=== PATIENT | male | born 1945 | race Caucasian/White ===

== ENCOUNTER 2020-05-11 13:01 | Inpatient (IN) ==
[2020-05-11] MEDS ORDERED: 0.9 % Sodium Chloride 1,000 ML IVC ONE ×2 (13:12→14:58)
[2020-05-11 13:58] LABS: VBG HCO3 26 mEq/L (21-27); VBG PCO2 58 mmHg (41-51); VBG PH 7.25 pH Units (7.32-7.42); VBG PO2 30 mmHg (25-50)
[2020-05-11 14:00] LABS: Basophils % 0.1 %; Hematocrit 54.8 % (37.5-50.1); Hemoglobin 18.1 g/dL (12.9-16.9); Immature Granulocytes % 0.5 % (0-4); Lymphocytes # 0.7 K/mcL (0.6-4.6); Lymphocytes % 4.7 %; Mean Corpuscular Hemoglobin 31.7 pg (28.0-33.3); Mean Platelet Volume 12.5 fL (9.4-12.4); Monocytes # 1.4 K/mcL (0.0-1.3); Monocytes % 9.5 %; Neutrophils # 12.4 K/mcL (1.6-8.9); Platelet Count 146 K/mcL (140-400); Red Blood Count 5.71 M/mcL (4.19-5.50); Red Cell Distribution Width 13.8 % (11.5-14.5); Segmented Neutrophils % 85.2 %; White Blood Count 14.6 K/mcL (4.3-11.1)
[2020-05-11 14:11] LABS: INR 1.3; Prothrombin Time 14.5 Seconds (9.4-12.1)
[2020-05-11 14:20] LABS: Bilirubin,Urine Negative (Negative); Blood,Urine Moderate (Negative); Clarity,Urine Clear (Clear); Color,Urine Light-Orange (Yellow); Glucose,Urine (UA) 500 mg/dL (Normal); Hyaline Casts,Urine Many per lpf (None Seen); Ketones,Urine Trace mg/dL (Negative); Leukocyte Esterase,Urine Trace (Negative); Mucus,Urine Few per lpf (None-Few); Nitrite,Urine Negative (Negative); Protein,Urine >=300 mg/dL (Neg-Trace); RBC,Urine 0-3 per hpf (0-3); Specific Gravity,Urine > 1.030 (1.010-1.025); Squamous Epithelial Cell,Urine Few per hpf (None-Few)
[2020-05-11 14:29] LABS: Amphetamine Screen,Urine Negative ng/mL (Cutoff=1000); Barbiturate Screen,Urine Negative ng/mL (Cutoff=200); Benzodiazepines Screen,Urine Negative ng/mL (Cutoff=200); Cannabinoid Screen,Urine Negative ng/mL (Cutoff = 50); Cocaine Screen,Urine Negative ng/mL (Cutoff= 300); Opiate Screen,Urine Negative ng/mL (Cutoff=300); Phencyclidine Screen,Urine Negative ng/mL (Cutoff=25)
[2020-05-11] MEDS ORDERED: cefTRIAXone 1,000 MG in Water for inj. (sterile) 10 ML IVP ONE (14:38)
[2020-05-11 14:42] LABS: Acetaminophen < 10 mcg/mL (10-20); Alanine Aminotransferase 42 Units/L (7-52); Albumin 3.5 g/dL (3.5-5.7); Albumin/Globulin Ratio 0.9 (1.1-2.2); Alkaline Phosphatase 124 Units/L (34-104); Aspartate Amino Transferase 82 Units/L (13-39); BUN/Creatinine Ratio 39 (6-26); Bilirubin,Total 1.6 mg/dL (0.3-1.0); Blood Urea Nitrogen 71 mg/dL (8-23); Calcium 9.8 mg/dL (8.6-10.3); Carbon Dioxide 22 mEq/L (23-29); Chloride 98 mEq/L (98-107); Creatine Kinase 2844 Units/L (30-223); Ethanol < 10 mg/dL (Less than 10); Globulin 3.8 g/dL (2.4-3.5); Glucose 282 mg/dL (70-105); Osmolality,Calculated 319 (280-300); Potassium 5.2 mEq/L (3.5-5.1); Salicylate < 2.5 mg/dL (15.0-30.0); Sodium 139 mEq/L (136-145); Total Protein 7.3 g/dL (6.4-8.9); Troponin I 0.03 ng/mL (< 0.04); eGFR For African Americans 45 (> 60); eGFR For Non-African Americans 37 (> 60)
[2020-05-11] MEDS ORDERED: D5% in Water 1,000 ML IVC PRN (15:56)
[2020-05-11] MEDS ORDERED: Ondansetron 4 MG/2 ML VIAL IVP PRN (15:56)
[2020-05-11] MEDS ORDERED: Naloxone 0.4 MG/ML INJ IVP PRN (15:56)
[2020-05-11] MEDS ORDERED: Dextrose Gel 15 GM/37.5 ML TUBE PO PRN ×2 (15:56)
[2020-05-11] MEDS ORDERED: *HR* Dextrose 50 % in Water (Vial) 50 ML VIAL IVP PRN (15:56)
[2020-05-11] MEDS ORDERED: *HR* LORazepam 2 MG/ML VIAL IVP PRN (16:06)
[2020-05-11] MEDS ORDERED: Vancomycin 1,750 MG in 0.9 % Sodium Chloride 250 ML IVPB SCH (16:15)
[2020-05-11] MEDS ORDERED: Vancomycin 1,750 MG/517.5 ML IV.SOLN IVPB ONE (17:00)
[2020-05-11] MEDS: *HR* Heparin 5,000 UNIT/ML VIAL SQ SCH (18:12)
[2020-05-11] MEDS: Cefepime HCl 2,000 MG in Water for inj. (sterile) 20 ML IVP SCH (18:12)
[2020-05-11] MEDS: Insulin LISPRO 300 UNITS/3 ML VIAL SUBQ SCH ×2 (18:13→23:48)
[2020-05-11] MEDS: Ringers Solution, Lactated 1,000 ML IVC SCH (18:13)
[2020-05-11] MEDS ORDERED: *HR* Metoprolol 5 MG/5 ML VIAL IVP ONE (23:10)
[2020-05-12 01:41] LABS: Basophils % 0.2 %; Eosinophils % 0.1 %; Hematocrit 48.2 % (37.5-50.1); Immature Granulocytes % 0.4 % (0-4); Lymphocytes # 0.9 K/mcL (0.6-4.6); Lymphocytes % 6.6 %; Mean Corpuscular HGB Conc 33.2 g/dL (31.6-35.5); Mean Corpuscular Hemoglobin 31.7 pg (28.0-33.3); Mean Corpuscular Volume 95.6 fL (83.0-100.0); Mean Platelet Volume 12.3 fL (9.4-12.4); Monocytes # 1.6 K/mcL (0.0-1.3); Monocytes % 12.5 %; Neutrophils # 10.4 K/mcL (1.6-8.9); Platelet Count 140 K/mcL (140-400); Red Blood Count 5.04 M/mcL (4.19-5.50); Red Cell Distribution Width 13.8 % (11.5-14.5); Segmented Neutrophils % 80.2 %; White Blood Count 12.9 K/mcL (4.3-11.1)
[2020-05-12 02:02] LABS: Alanine Aminotransferase 37 Units/L (7-52); Albumin 3.1 g/dL (3.5-5.7); Alkaline Phosphatase 103 Units/L (34-104); Aspartate Amino Transferase 72 Units/L (13-39); BUN/Creatinine Ratio 55 (6-26); Blood Urea Nitrogen 66 mg/dL (8-23); Calcium 8.9 mg/dL (8.6-10.3); Carbon Dioxide 23 mEq/L (23-29); Chloride 107 mEq/L (98-107); Creatine Kinase 1623 Units/L (30-223); Globulin 3.1 g/dL (2.4-3.5); Glucose 157 mg/dL (70-105); Magnesium 2.1 mg/dL (1.6-2.6); Osmolality,Calculated 320 (280-300); Phosphorous 4.4 mg/dL (2.7-4.5); Potassium 4.6 mEq/L (3.5-5.1); Sodium 144 mEq/L (136-145); Total Protein 6.2 g/dL (6.4-8.9); eGFR For African Americans > 60 (> 60); eGFR For Non-African Americans 59 (> 60)
[2020-05-12] MEDS: Ringers Solution, Lactated 1,000 ML IVC SCH (03:57)
[2020-05-12] MEDS: Cefepime HCl 2,000 MG in Water for inj. (sterile) 20 ML IVP SCH ×2 (05:14→16:56)
[2020-05-12] MEDS: *HR* Heparin 5,000 UNIT/ML VIAL SQ SCH (05:15)
[2020-05-12] MEDS: Insulin LISPRO 300 UNITS/3 ML VIAL SUBQ SCH ×3 (05:31→21:15)
[2020-05-12] MEDS ORDERED: *HR* Promethazine 25 MG/ML VIAL IM PRN (09:17)
[2020-05-12] MEDS: Folic Acid 1 MG in 0.9 % Sodium Chloride 50 ML IVPB SCH (10:04)
[2020-05-12] MEDS: Thiamine (B-1) 200 MG in 0.9 % Sodium Chloride 50 ML IVPB SCH (10:04)
[2020-05-12] MEDS ORDERED: *HR* Metoprolol 5 MG/5 ML VIAL IVP PRN (10:27)
[2020-05-12] MEDS ORDERED: *HR* Metoprolol 5 MG/5 ML VIAL IVP ONE (10:32)
[2020-05-12] MEDS ORDERED: Perflutren Lipid Microsphere 1.3 ML in 0.9 % Sodium Chloride 8.7 ML IVP PRN (10:41)
[2020-05-12] MEDS ORDERED: *HR* Heparin 5,000 UNIT/ML VIAL IVP PRN ×2 (10:42)
[2020-05-12] MEDS ORDERED: *HR* Heparin 5,000 UNIT/ML VIAL IVP ONE (10:42)
[2020-05-12 11:33] LABS: Heparin anti-factor XA UFH < 0.04 IU/mL (0.30-0.70); Red Blood Count 4.77 M/mcL (4.19-5.50)
[2020-05-12 11:34] LABS: INR 1.3; Prothrombin Time 15.2 Seconds (9.4-12.1)
[2020-05-12 11:35] LABS: Hematocrit 46.3 % (37.5-50.1); Immature Platelets 4.2 % (1.1-6.1); Mean Corpuscular HGB Conc 32.4 g/dL (31.6-35.5); Mean Corpuscular Hemoglobin 31.4 pg (28.0-33.3); Mean Corpuscular Volume 97.1 fL (83.0-100.0); Red Cell Distribution Width 13.8 % (11.5-14.5); White Blood Count 11.6 K/mcL (4.3-11.1)
[2020-05-12] MEDS: Heparin 25,000UNIT/250ML 1/2NS 25,000 UNIT/250 ML IV.SOLN IVC SCH (12:18)
[2020-05-12 14:55] LABS: Estimated Average Glucose 280 mg/dl; Hemoglobin A1C 11.4 %
[2020-05-12] MEDS ORDERED: Vancomycin 1,500 MG/265 ML IV.SOLN IVPB SCH (17:00)
[2020-05-12] MEDS: *HR* LORazepam 2 MG/ML VIAL IVP PRN (17:09)
[2020-05-13] MEDS: *HR* LORazepam 2 MG/ML VIAL IVP PRN ×5 (00:40→20:59)
[2020-05-13 03:18] LABS: Basophils % 0.2 %; Eosinophils % 0.5 %; Hematocrit 41.5 % (37.5-50.1); Immature Granulocytes % 0.5 % (0-4); Lymphocytes # 0.9 K/mcL (0.6-4.6); Lymphocytes % 11.2 %; Mean Corpuscular HGB Conc 32.3 g/dL (31.6-35.5); Mean Corpuscular Hemoglobin 30.9 pg (28.0-33.3); Mean Corpuscular Volume 95.6 fL (83.0-100.0); Mean Platelet Volume 12.1 fL (9.4-12.4); Monocytes # 0.8 K/mcL (0.0-1.3); Monocytes % 10.4 %; Neutrophils # 6.3 K/mcL (1.6-8.9); Red Blood Count 4.34 M/mcL (4.19-5.50); Red Cell Distribution Width 13.7 % (11.5-14.5); Segmented Neutrophils % 77.2 %; White Blood Count 8.1 K/mcL (4.3-11.1)
[2020-05-13 03:39] LABS: BUN/Creatinine Ratio 54 (6-26); Blood Urea Nitrogen 37 mg/dL (8-23); Calcium 8.4 mg/dL (8.6-10.3); Carbon Dioxide 26 mEq/L (23-29); Chloride 109 mEq/L (98-107); Creatine Kinase 759 Units/L (30-223); Glucose 220 mg/dL (70-105); Osmolality,Calculated 311 (280-300); Potassium 3.8 mEq/L (3.5-5.1); Sodium 143 mEq/L (136-145); eGFR For African Americans > 60 (> 60); eGFR For Non-African Americans > 60 (> 60)
[2020-05-13 03:41] LABS: Hemoglobin 13.4 g/dL (12.9-16.9); Platelet Count 72 K/mcL (140-400)
[2020-05-13 03:53] LABS: Thyroid Stimulating Hormone 2.176 mcIU/mL (0.340-5.600)
[2020-05-13] MEDS: Cefepime HCl 2,000 MG in Water for inj. (sterile) 20 ML IVP SCH ×2 (04:36→16:37)
[2020-05-13] MEDS: Heparin 25,000UNIT/250ML 1/2NS 25,000 UNIT/250 ML IV.SOLN IVC SCH (07:21)
[2020-05-13] MEDS: Aspirin Enteric Coated 81 MG Tablet PO SCH (07:22)
[2020-05-13] MEDS: Furosemide 40 MG/4 ML VIAL IVP SCH (07:22)
[2020-05-13] MEDS: Thiamine (B-1) 200 MG in 0.9 % Sodium Chloride 50 ML IVPB SCH (07:23)
[2020-05-13] MEDS: Folic Acid 1 MG in 0.9 % Sodium Chloride 50 ML IVPB SCH (07:24)
[2020-05-13] MEDS: Insulin LISPRO 300 UNITS/3 ML VIAL SUBQ SCH ×3 (07:41→16:49)
[2020-05-13] MEDS: Apixaban 5 MG TABLET PO SCH ×2 (10:40→20:18)
[2020-05-13] MEDS: Vancomycin 1,500 MG/265 ML IV.SOLN IVPB SCH (16:37)
[2020-05-14 01:11] LABS: Basophils % 0.1 %; Eosinophils # 0.1 K/mcL (0.0-0.6); Eosinophils % 0.7 %; Hematocrit 43.5 % (37.5-50.1); Hemoglobin 14.2 g/dL (12.9-16.9); Immature Granulocytes % 0.4 % (0-4); Lymphocytes % 14.7 %; Mean Corpuscular HGB Conc 32.6 g/dL (31.6-35.5); Mean Corpuscular Hemoglobin 31.7 pg (28.0-33.3); Mean Corpuscular Volume 97.1 fL (83.0-100.0); Mean Platelet Volume 12.4 fL (9.4-12.4); Monocytes # 0.7 K/mcL (0.0-1.3); Monocytes % 10.4 %; Neutrophils # 5.1 K/mcL (1.6-8.9); Red Blood Count 4.48 M/mcL (4.19-5.50); Red Cell Distribution Width 13.3 % (11.5-14.5); Segmented Neutrophils % 73.7 %; White Blood Count 6.9 K/mcL (4.3-11.1)
[2020-05-14 01:12] LABS: Platelet Count 98 K/mcL (140-400)
[2020-05-14 01:32] LABS: BUN/Creatinine Ratio 42 (6-26); Blood Urea Nitrogen 23 mg/dL (8-23); Carbon Dioxide 29 mEq/L (23-29); Chloride 108 mEq/L (98-107); Glucose 179 mg/dL (70-105); Magnesium 1.9 mg/dL (1.6-2.6); Osmolality,Calculated 310 (280-300); Phosphorous 1.9 mg/dL (2.7-4.5); Potassium 3.9 mEq/L (3.5-5.1); Sodium 146 mEq/L (136-145); eGFR For African Americans > 60 (> 60); eGFR For Non-African Americans > 60 (> 60)
[2020-05-14] MEDS: Insulin LISPRO 300 UNITS/3 ML VIAL SUBQ SCH ×5 (01:34→20:40)
[2020-05-14 01:56] LABS: Folate 10.5 ng/mL (3.0-16.0)
[2020-05-14] MEDS: Cefepime HCl 2,000 MG in Water for inj. (sterile) 20 ML IVP SCH ×2 (04:33→16:29)
[2020-05-14] MEDS: Vancomycin 1,500 MG/265 ML IV.SOLN IVPB SCH ×2 (04:34→16:28)
[2020-05-14] MEDS: *HR* LORazepam 2 MG/ML VIAL IVP PRN ×2 (05:06→06:14)
[2020-05-14] MEDS: Apixaban 5 MG TABLET PO SCH (09:01)
[2020-05-14] MEDS: Aspirin Enteric Coated 81 MG Tablet PO SCH (09:01)
[2020-05-14] MEDS: Furosemide 40 MG/4 ML VIAL IVP SCH (09:02)
[2020-05-14] MEDS: Folic Acid 1 MG in 0.9 % Sodium Chloride 50 ML IVPB SCH (09:32)
[2020-05-14] MEDS: Thiamine (B-1) 200 MG in 0.9 % Sodium Chloride 50 ML IVPB SCH (09:55)
[2020-05-14] MEDS: Thiamine (B-1) 100 MG in 0.9 % Sodium Chloride 50 ML IVPB SCH (13:56)
[2020-05-14] MEDS: *HR* Heparin 5,000 UNIT/ML VIAL SQ SCH (20:51)
[2020-05-14] MEDS ORDERED: QUEtiapine Fumarate 25 MG TABLET PO SCH (21:00)
[2020-05-15 00:37] LABS: Basophils % 0.4 %; Eosinophils # 0.1 K/mcL (0.0-0.6); Eosinophils % 1.8 %; Hemoglobin 14.4 g/dL (12.9-16.9); Immature Granulocytes % 0.7 % (0-4); Lymphocytes # 1.1 K/mcL (0.6-4.6); Lymphocytes % 15.5 %; Mean Corpuscular Hemoglobin 30.9 pg (28.0-33.3); Mean Corpuscular Volume 96.6 fL (83.0-100.0); Mean Platelet Volume 12.4 fL (9.4-12.4); Monocytes % 13.3 %; Neutrophils # 4.9 K/mcL (1.6-8.9); Platelet Count 100 K/mcL (140-400); Red Blood Count 4.66 M/mcL (4.19-5.50); Red Cell Distribution Width 13.5 % (11.5-14.5); Segmented Neutrophils % 68.3 %; White Blood Count 7.2 K/mcL (4.3-11.1)
[2020-05-15 04:14] LABS: Alanine Aminotransferase 31 Units/L (7-52); Albumin 2.8 g/dL (3.5-5.7); Albumin/Globulin Ratio 0.9 (1.1-2.2); Alkaline Phosphatase 75 Units/L (34-104); Aspartate Amino Transferase 39 Units/L (13-39); BUN/Creatinine Ratio 33 (6-26); Bilirubin,Total 1.2 mg/dL (0.3-1.0); Blood Urea Nitrogen 19 mg/dL (8-23); Carbon Dioxide 28 mEq/L (23-29); Chloride 109 mEq/L (98-107); Globulin 3.2 g/dL (2.4-3.5); Glucose 163 mg/dL (70-105); Osmolality,Calculated 314 (280-300); Potassium 3.7 mEq/L (3.5-5.1); Sodium 149 mEq/L (136-145); eGFR For African Americans > 60 (> 60); eGFR For Non-African Americans > 60 (> 60)
[2020-05-15] MEDS: Cefepime HCl 2,000 MG in Water for inj. (sterile) 20 ML IVP SCH ×2 (04:53→17:29)
[2020-05-15] MEDS: Vancomycin 1,500 MG/265 ML IV.SOLN IVPB SCH ×2 (04:54→16:23)
[2020-05-15] MEDS: *HR* Heparin 5,000 UNIT/ML VIAL SQ SCH ×3 (04:54→20:05)
[2020-05-15] MEDS ORDERED: D5% in Water 1,000 ML IVC SCH (07:45)
[2020-05-15] MEDS: Aspirin Enteric Coated 81 MG Tablet PO SCH (08:35)
[2020-05-15] MEDS: Furosemide 40 MG/4 ML VIAL IVP SCH (08:35)
[2020-05-15] MEDS: Thiamine (B-1) 100 MG in 0.9 % Sodium Chloride 50 ML IVPB SCH (08:35)
[2020-05-15] MEDS: Insulin LISPRO 300 UNITS/3 ML VIAL SUBQ SCH ×4 (08:36→20:04)
[2020-05-15] MEDS ORDERED: Haloperidol Lactate 5 MG/ML VIAL IVP ONE (18:13)
[2020-05-16 01:38] LABS: Basophils % 0.5 %; Red Cell Distribution Width 13.3 % (11.5-14.5)
[2020-05-16 01:40] LABS: Eosinophils # 0.2 K/mcL (0.0-0.6); Eosinophils % 2.1 %; Hematocrit 45.1 % (37.5-50.1); Hemoglobin 14.2 g/dL (12.9-16.9); Immature Granulocytes % 0.7 % (0-4); Immature Platelets 3.2 % (1.1-6.1); Lymphocytes % 12.3 %; Mean Corpuscular HGB Conc 31.5 g/dL (31.6-35.5); Mean Corpuscular Hemoglobin 30.8 pg (28.0-33.3); Mean Corpuscular Volume 97.8 fL (83.0-100.0); Monocytes % 12.7 %; Neutrophils # 5.8 K/mcL (1.6-8.9); Platelet Count 141 K/mcL (140-400); Red Blood Count 4.61 M/mcL (4.19-5.50); Segmented Neutrophils % 71.7 %; White Blood Count 8.1 K/mcL (4.3-11.1)
[2020-05-16 01:55] LABS: BUN/Creatinine Ratio 26 (6-26); Blood Urea Nitrogen 18 mg/dL (8-23); Calcium 8.8 mg/dL (8.6-10.3); Carbon Dioxide 37 mEq/L (23-29); Chloride 103 mEq/L (98-107); Creatine Kinase 246 Units/L (30-223); Glucose 211 mg/dL (70-105); Osmolality,Calculated 308 (280-300); Potassium 3.6 mEq/L (3.5-5.1); Sodium 145 mEq/L (136-145); eGFR For African Americans > 60 (> 60); eGFR For Non-African Americans > 60 (> 60)
[2020-05-16] MEDS: Cefepime HCl 2,000 MG in Water for inj. (sterile) 20 ML IVP SCH ×2 (06:17→18:25)
[2020-05-16] MEDS: Vancomycin 1,500 MG/265 ML IV.SOLN IVPB SCH ×2 (06:17→18:25)
[2020-05-16] MEDS: *HR* Heparin 5,000 UNIT/ML VIAL SQ SCH (06:18)
[2020-05-16] MEDS: Thiamine (B-1) 100 MG in 0.9 % Sodium Chloride 50 ML IVPB SCH (09:47)
[2020-05-16] MEDS: Furosemide 40 MG/4 ML VIAL IVP SCH (09:47)
[2020-05-16] MEDS: Insulin LISPRO 300 UNITS/3 ML VIAL SUBQ SCH ×4 (09:48→20:29)
[2020-05-16] MEDS: Aspirin Enteric Coated 81 MG Tablet PO SCH (10:47)
[2020-05-16] MEDS: QUEtiapine Fumarate 25 MG TABLET PO SCH (20:29)
[2020-05-17] MEDS: Cefepime HCl 2,000 MG in Water for inj. (sterile) 20 ML IVP SCH ×2 (05:12→17:12)
[2020-05-17] MEDS: Vancomycin 1,500 MG/265 ML IV.SOLN IVPB SCH ×2 (05:12→17:11)
[2020-05-17 06:14] LABS: Basophils % 0.4 %; Eosinophils # 0.2 K/mcL (0.0-0.6); Eosinophils % 1.7 %; Hematocrit 47.4 % (37.5-50.1); Hemoglobin 15.3 g/dL (12.9-16.9); Immature Granulocytes % 0.6 % (0-4); Lymphocytes # 1.3 K/mcL (0.6-4.6); Lymphocytes % 14.2 %; Mean Corpuscular HGB Conc 32.3 g/dL (31.6-35.5); Mean Corpuscular Hemoglobin 31.3 pg (28.0-33.3); Mean Corpuscular Volume 96.9 fL (83.0-100.0); Monocytes # 1.1 K/mcL (0.0-1.3); Neutrophils # 6.7 K/mcL (1.6-8.9); Platelet Count 122 K/mcL (140-400); Red Blood Count 4.89 M/mcL (4.19-5.50); Red Cell Distribution Width 13.4 % (11.5-14.5); Segmented Neutrophils % 71.1 %; White Blood Count 9.4 K/mcL (4.3-11.1)
[2020-05-17 06:34] LABS: BUN/Creatinine Ratio 33 (6-26); Blood Urea Nitrogen 22 mg/dL (8-23); Calcium 9.1 mg/dL (8.6-10.3); Carbon Dioxide 34 mEq/L (23-29); Chloride 101 mEq/L (98-107); Glucose 180 mg/dL (70-105); Osmolality,Calculated 310 (280-300); Potassium 3.5 mEq/L (3.5-5.1); Sodium 146 mEq/L (136-145); eGFR For African Americans > 60 (> 60); eGFR For Non-African Americans > 60 (> 60)
[2020-05-17] MEDS: Insulin LISPRO 300 UNITS/3 ML VIAL SUBQ SCH ×4 (07:57→22:31)
[2020-05-17] MEDS: Aspirin Enteric Coated 81 MG Tablet PO SCH (07:58)
[2020-05-17] MEDS: Furosemide 40 MG/4 ML VIAL IVP SCH (07:58)
[2020-05-17] MEDS: Thiamine (B-1) 100 MG in 0.9 % Sodium Chloride 50 ML IVPB SCH (08:02)
[2020-05-17] MEDS ORDERED: E-Z-HD (BARIUM SULF) SUSPENSION PO ONE (10:26)
[2020-05-17] MEDS ORDERED: E-Z-PAQUE (BARIUM SULF) SUSP 1 BOTTLE PO ONE (10:26)
[2020-05-17] MEDS: D5% in Water 1,000 ML IVC SCH (14:29)
[2020-05-17] MEDS: QUEtiapine Fumarate 25 MG TABLET PO SCH (22:31)
[2020-05-18 01:54] LABS: Basophils # 0.1 K/mcL (0.0-0.2); Basophils % 0.7 %; Eosinophils # 0.3 K/mcL (0.0-0.6); Hematocrit 47.7 % (37.5-50.1); Hemoglobin 15.4 g/dL (12.9-16.9); Lymphocytes # 1.4 K/mcL (0.6-4.6); Lymphocytes % 16.7 %; Mean Corpuscular HGB Conc 32.3 g/dL (31.6-35.5); Mean Corpuscular Hemoglobin 31.6 pg (28.0-33.3); Mean Corpuscular Volume 97.9 fL (83.0-100.0); Mean Platelet Volume 12.2 fL (9.4-12.4); Monocytes % 11.7 %; Neutrophils # 5.5 K/mcL (1.6-8.9); Platelet Count 112 K/mcL (140-400); Red Blood Count 4.87 M/mcL (4.19-5.50); Red Cell Distribution Width 13.4 % (11.5-14.5); Segmented Neutrophils % 66.9 %; White Blood Count 8.2 K/mcL (4.3-11.1)
[2020-05-18 02:16] LABS: BUN/Creatinine Ratio 40 (6-26); Blood Urea Nitrogen 23 mg/dL (8-23); Calcium 8.7 mg/dL (8.6-10.3); Carbon Dioxide 35 mEq/L (23-29); Chloride 101 mEq/L (98-107); Glucose 211 mg/dL (70-105); Osmolality,Calculated 308 (280-300); Potassium 3.1 mEq/L (3.5-5.1); Sodium 144 mEq/L (136-145); eGFR For African Americans > 60 (> 60); eGFR For Non-African Americans > 60 (> 60)
[2020-05-18] MEDS: Vancomycin 1,500 MG/265 ML IV.SOLN IVPB SCH ×2 (04:01→16:41)
[2020-05-18] MEDS: D5% in Water 1,000 ML IVC SCH (04:01)
[2020-05-18] MEDS: *HR* Heparin 5,000 UNIT/ML VIAL SQ SCH (06:05)
[2020-05-18] MEDS: Cefepime HCl 2,000 MG in Water for inj. (sterile) 20 ML IVP SCH ×2 (06:05→16:41)
[2020-05-18] MEDS ORDERED: Potassium Chloride 40 MEQ, Lidocaine 1% 2 ML in 0.9 % Sodium Chloride 500 ML IVPB ONE (07:27)
[2020-05-18] MEDS: Thiamine (B-1) 100 MG in 0.9 % Sodium Chloride 50 ML IVPB SCH (08:51)
[2020-05-18] MEDS: Insulin LISPRO 300 UNITS/3 ML VIAL SUBQ SCH ×4 (08:58→23:55)
[2020-05-18] MEDS: Aspirin Enteric Coated 81 MG Tablet PO SCH (08:59)
[2020-05-18] MEDS: Furosemide 40 MG/4 ML VIAL IVP SCH (08:59)
[2020-05-18] MEDS: QUEtiapine Fumarate 25 MG TABLET PO SCH (20:17)
[2020-05-18] MEDS: Apixaban 5 MG TABLET PO SCH (20:17)
[2020-05-18] MEDS: Acetaminophen 325 MG TABLET PO PRN (20:17)
[2020-05-19 01:16] LABS: Immature Granulocytes % 1.1 % (0-4); Mean Platelet Volume 12.6 fL (9.4-12.4); Red Blood Count 4.37 M/mcL (4.19-5.50)
[2020-05-19 01:18] LABS: Basophils # 0.1 K/mcL (0.0-0.2); Basophils % 0.9 %; Eosinophils # 0.3 K/mcL (0.0-0.6); Eosinophils % 3.1 %; Hematocrit 41.6 % (37.5-50.1); Immature Platelets 4.6 % (1.1-6.1); Lymphocytes # 1.6 K/mcL (0.6-4.6); Lymphocytes % 17.2 %; Mean Corpuscular HGB Conc 32.2 g/dL (31.6-35.5); Mean Corpuscular Hemoglobin 30.7 pg (28.0-33.3); Mean Corpuscular Volume 95.2 fL (83.0-100.0); Monocytes # 0.9 K/mcL (0.0-1.3); Monocytes % 9.5 %; Neutrophils # 6.3 K/mcL (1.6-8.9); Platelet Count 140 K/mcL (140-400); Red Cell Distribution Width 13.4 % (11.5-14.5); Segmented Neutrophils % 68.2 %; White Blood Count 9.2 K/mcL (4.3-11.1)
[2020-05-19 01:20] LABS: Hemoglobin 13.4 g/dL (12.9-16.9)
[2020-05-19 01:33] LABS: BUN/Creatinine Ratio 36 (6-26); Blood Urea Nitrogen 29 mg/dL (8-23); Calcium 7.9 mg/dL (8.6-10.3); Carbon Dioxide 33 mEq/L (23-29); Chloride 100 mEq/L (98-107); Glucose 250 mg/dL (70-105); Osmolality,Calculated 304 (280-300); Potassium 3.5 mEq/L (3.5-5.1); Sodium 140 mEq/L (136-145); eGFR For African Americans > 60 (> 60); eGFR For Non-African Americans > 60 (> 60)
[2020-05-19] MEDS: Cefepime HCl 2,000 MG in Water for inj. (sterile) 20 ML IVP SCH ×2 (05:10→17:30)
[2020-05-19] MEDS: Vancomycin 1,500 MG/265 ML IV.SOLN IVPB SCH (05:11)
[2020-05-19] MEDS: Apixaban 5 MG TABLET PO SCH ×2 (08:03→21:57)
[2020-05-19] MEDS: Aspirin Enteric Coated 81 MG Tablet PO SCH (08:03)
[2020-05-19] MEDS: Furosemide 40 MG/4 ML VIAL IVP SCH (08:04)
[2020-05-19] MEDS: Thiamine (B-1) 100 MG in 0.9 % Sodium Chloride 50 ML IVPB SCH (08:04)
[2020-05-19] MEDS: Insulin LISPRO 300 UNITS/3 ML VIAL SUBQ SCH ×4 (08:06→21:24)
[2020-05-19] MEDS: Acetaminophen 325 MG TABLET PO PRN (21:57)
[2020-05-19] MEDS: QUEtiapine Fumarate 25 MG TABLET PO SCH (21:57)
[2020-05-20 02:42] LABS: Basophils # 0.1 K/mcL (0.0-0.2); Basophils % 0.6 %; Eosinophils # 0.2 K/mcL (0.0-0.6); Eosinophils % 2.1 %; Hematocrit 43.2 % (37.5-50.1); Hemoglobin 14.3 g/dL (12.9-16.9); Immature Granulocytes % 0.9 % (0-4); Lymphocytes # 1.7 K/mcL (0.6-4.6); Lymphocytes % 17.3 %; Mean Corpuscular HGB Conc 33.1 g/dL (31.6-35.5); Mean Corpuscular Hemoglobin 31.6 pg (28.0-33.3); Mean Corpuscular Volume 95.6 fL (83.0-100.0); Mean Platelet Volume 12.3 fL (9.4-12.4); Monocytes # 0.9 K/mcL (0.0-1.3); Monocytes % 8.5 %; Neutrophils # 7.1 K/mcL (1.6-8.9); Platelet Count 125 K/mcL (140-400); Red Blood Count 4.52 M/mcL (4.19-5.50); Red Cell Distribution Width 13.4 % (11.5-14.5); Segmented Neutrophils % 70.6 %; White Blood Count 10.1 K/mcL (4.3-11.1)
[2020-05-20 02:59] LABS: BUN/Creatinine Ratio 34 (6-26); Blood Urea Nitrogen 24 mg/dL (8-23); Calcium 8.3 mg/dL (8.6-10.3); Carbon Dioxide 34 mEq/L (23-29); Chloride 99 mEq/L (98-107); Glucose 205 mg/dL (70-105); Osmolality,Calculated 298 (280-300); Potassium 3.4 mEq/L (3.5-5.1); Sodium 139 mEq/L (136-145); eGFR For African Americans > 60 (> 60); eGFR For Non-African Americans > 60 (> 60)
[2020-05-20] MEDS: Cefepime HCl 2,000 MG in Water for inj. (sterile) 20 ML IVP SCH ×2 (06:19→17:39)
[2020-05-20] MEDS: Apixaban 5 MG TABLET PO SCH ×2 (08:13→21:30)
[2020-05-20] MEDS: Furosemide 40 MG/4 ML VIAL IVP SCH (08:13)
[2020-05-20] MEDS: Aspirin Enteric Coated 81 MG Tablet PO SCH (08:13)
[2020-05-20] MEDS: Insulin LISPRO 300 UNITS/3 ML VIAL SUBQ SCH ×4 (08:14→21:28)
[2020-05-20] MEDS: Vancomycin 1,250 MG/262.5 ML IV.SOLN IVPB SCH (11:52)
[2020-05-20] MEDS: Thiamine (B-1) 100 MG in 0.9 % Sodium Chloride 50 ML IVPB SCH (12:37)
[2020-05-20] MEDS: QUEtiapine Fumarate 25 MG TABLET PO SCH (21:29)
[2020-05-21 04:59] LABS: Basophils # 0.1 K/mcL (0.0-0.2); Basophils % 0.8 %; Eosinophils # 0.2 K/mcL (0.0-0.6); Hematocrit 41.6 % (37.5-50.1); Hemoglobin 13.9 g/dL (12.9-16.9); Lymphocytes # 1.8 K/mcL (0.6-4.6); Lymphocytes % 17.5 %; Mean Corpuscular HGB Conc 33.4 g/dL (31.6-35.5); Mean Corpuscular Hemoglobin 31.5 pg (28.0-33.3); Mean Corpuscular Volume 94.3 fL (83.0-100.0); Mean Platelet Volume 11.9 fL (9.4-12.4); Monocytes % 9.7 %; Platelet Count 139 K/mcL (140-400); Red Blood Count 4.41 M/mcL (4.19-5.50); Red Cell Distribution Width 13.5 % (11.5-14.5); White Blood Count 10.2 K/mcL (4.3-11.1)
[2020-05-21 05:10] LABS: BUN/Creatinine Ratio 30 (6-26); Blood Urea Nitrogen 21 mg/dL (8-23); Calcium 8.5 mg/dL (8.6-10.3); Carbon Dioxide 32 mEq/L (23-29); Chloride 99 mEq/L (98-107); Glucose 192 mg/dL (70-105); Osmolality,Calculated 294 (280-300); Potassium 3.7 mEq/L (3.5-5.1); Sodium 138 mEq/L (136-145); eGFR For African Americans > 60 (> 60); eGFR For Non-African Americans > 60 (> 60)
[2020-05-21] MEDS: Cefepime HCl 2,000 MG in Water for inj. (sterile) 20 ML IVP SCH ×2 (05:57→17:03)
[2020-05-21] MEDS: Furosemide 40 MG/4 ML VIAL IVP SCH (08:15)
[2020-05-21] MEDS: Aspirin Enteric Coated 81 MG Tablet PO SCH (08:15)
[2020-05-21] MEDS: Apixaban 5 MG TABLET PO SCH ×2 (08:15→21:37)
[2020-05-21] MEDS: Insulin LISPRO 300 UNITS/3 ML VIAL SUBQ SCH ×4 (08:16→21:37)
[2020-05-21] MEDS: Thiamine (B-1) 100 MG in 0.9 % Sodium Chloride 50 ML IVPB SCH (08:29)
[2020-05-21] MEDS ORDERED: E-Z-HD (BARIUM SULF) SUSPENSION PO ONE (10:36)
[2020-05-21] MEDS ORDERED: E-Z-PAQUE (BARIUM SULF) SUSP 1 BOTTLE PO ONE (10:36)
[2020-05-21] MEDS: Vancomycin 1,250 MG/262.5 ML IV.SOLN IVPB SCH (11:35)
[2020-05-21] MEDS: QUEtiapine Fumarate 25 MG TABLET PO SCH (21:37)
[2020-05-22] MEDS: Aspirin Enteric Coated 81 MG Tablet PO SCH (08:50)
[2020-05-22] MEDS: Thiamine (B-1) 100 MG TABLET PO SCH (08:50)
[2020-05-22] MEDS: Furosemide 40 MG TABLET PO SCH (08:51)
[2020-05-22] MEDS: Apixaban 5 MG TABLET PO SCH ×2 (08:51→21:16)
[2020-05-22] MEDS: Insulin LISPRO 300 UNITS/3 ML VIAL SUBQ SCH ×4 (08:51→21:16)
[2020-05-22] MEDS: QUEtiapine Fumarate 25 MG TABLET PO SCH (21:16)
[2020-05-23 05:48] LABS: Basophils # 0.1 K/mcL (0.0-0.2); Basophils % 0.8 %; Eosinophils # 0.2 K/mcL (0.0-0.6); Eosinophils % 2.2 %; Hematocrit 41.7 % (37.5-50.1); Hemoglobin 13.9 g/dL (12.9-16.9); Lymphocytes # 1.9 K/mcL (0.6-4.6); Lymphocytes % 21.9 %; Mean Corpuscular HGB Conc 33.3 g/dL (31.6-35.5); Mean Corpuscular Hemoglobin 31.9 pg (28.0-33.3); Mean Corpuscular Volume 95.6 fL (83.0-100.0); Monocytes # 0.8 K/mcL (0.0-1.3); Monocytes % 8.8 %; Neutrophils # 5.7 K/mcL (1.6-8.9); Platelet Count 155 K/mcL (140-400); Red Blood Count 4.36 M/mcL (4.19-5.50); Red Cell Distribution Width 13.3 % (11.5-14.5); Segmented Neutrophils % 65.3 %; White Blood Count 8.7 K/mcL (4.3-11.1)
[2020-05-23 06:12] LABS: BUN/Creatinine Ratio 27 (6-26); Blood Urea Nitrogen 21 mg/dL (8-23); Calcium 9.1 mg/dL (8.6-10.3); Carbon Dioxide 31 mEq/L (23-29); Chloride 97 mEq/L (98-107); Glucose 283 mg/dL (70-105); Osmolality,Calculated 293 (280-300); Potassium 3.8 mEq/L (3.5-5.1); Sodium 135 mEq/L (136-145); eGFR For African Americans > 60 (> 60); eGFR For Non-African Americans > 60 (> 60)
[2020-05-23] MEDS: Furosemide 40 MG TABLET PO SCH (08:04)
[2020-05-23] MEDS: Apixaban 5 MG TABLET PO SCH ×2 (08:04→21:46)
[2020-05-23] MEDS: Insulin LISPRO 300 UNITS/3 ML VIAL SUBQ SCH ×4 (08:04→21:40)
[2020-05-23] MEDS: Aspirin Enteric Coated 81 MG Tablet PO SCH (08:04)
[2020-05-23] MEDS: Thiamine (B-1) 100 MG TABLET PO SCH (08:04)
[2020-05-23 13:36] LABS: Albumin 3.1 g/dL (3.5-5.7); Albumin/Globulin Ratio 0.9 (1.1-2.2); Bilirubin,Direct 0.2 mg/dL (0.0-0.2); Bilirubin,Indirect 0.7 mg/dL (0.0-1.0); Bilirubin,Total 0.9 mg/dL (0.3-1.0); Globulin 3.4 g/dL (2.4-3.5); Total Protein 6.5 g/dL (6.4-8.9)
[2020-05-23 13:45] LABS: ABG Base Excess 9 mEq/L (-2 to 3); ABG HCO3 35 mEq/L (21-27); ABG Oxygen Saturation 92 % (95-98); ABG PCO2 52 mmHg (35-45); ABG PH 7.44 pH Units (7.32-7.45); ABG PO2 63 mmHg (85-104); ABG TCO2 37 mEq/L (20-26)
[2020-05-23 14:20] LABS: Folate 7.4 ng/mL (3.0-16.0)
[2020-05-23] MEDS ORDERED: acetaZOLAMIDE 250 MG in Water for inj. (sterile) 2.5 ML IVP ONE (16:01)
[2020-05-23] MEDS ORDERED: acetaZOLAMIDE 250 MG TABLET PO ONE (16:48)
[2020-05-23] MEDS: Insulin DETEMIR 100 UNIT/ML X5UNITS SUBQ SCH (21:47)
[2020-05-23] MEDS: QUEtiapine Fumarate 25 MG TABLET PO SCH (21:47)
[2020-05-24 03:36] LABS: BUN/Creatinine Ratio 26 (6-26); Blood Urea Nitrogen 22 mg/dL (8-23); Calcium 9.1 mg/dL (8.6-10.3); Carbon Dioxide 31 mEq/L (23-29); Chloride 98 mEq/L (98-107); Glucose 257 mg/dL (70-105); Osmolality,Calculated 298 (280-300); Potassium 3.8 mEq/L (3.5-5.1); Sodium 138 mEq/L (136-145); eGFR For African Americans > 60 (> 60); eGFR For Non-African Americans > 60 (> 60)
[2020-05-24] MEDS: Thiamine (B-1) 100 MG TABLET PO SCH (08:25)
[2020-05-24] MEDS: Apixaban 5 MG TABLET PO SCH ×2 (08:25→19:54)
[2020-05-24] MEDS: Furosemide 40 MG TABLET PO SCH (08:25)
[2020-05-24] MEDS: Aspirin Enteric Coated 81 MG Tablet PO SCH (08:25)
[2020-05-24] MEDS: Insulin LISPRO 300 UNITS/3 ML VIAL SUBQ SCH ×4 (08:27→20:17)
[2020-05-24 11:04] LABS: Bacteria,Urine Few per hpf (None-Few); Bilirubin,Urine Negative (Negative); Blood,Urine Large (Negative); Clarity,Urine Turbid (Clear); Color,Urine Light-Orange (Yellow); Glucose,Urine (UA) 100 mg/dL (Normal); Ketones,Urine Negative (Negative); Leukocyte Esterase,Urine Negative (Negative); Nitrite,Urine Negative (Negative); Protein,Urine 30 mg/dL (Neg-Trace); RBC,Urine TNTC per hpf (0-3); Specific Gravity,Urine 1.017 (1.010-1.025); WBC,Urine 0-3 per hpf (0-3)
[2020-05-24] MEDS: QUEtiapine Fumarate 25 MG TABLET PO SCH (19:54)
[2020-05-24] MEDS: Insulin DETEMIR 100 UNIT/ML X5UNITS SUBQ SCH (20:17)
[2020-05-25] MEDS: Acetaminophen 325 MG TABLET PO PRN (00:25)
[2020-05-25] MEDS: Furosemide 40 MG TABLET PO SCH (08:04)
[2020-05-25] MEDS: Aspirin Enteric Coated 81 MG Tablet PO SCH (08:04)
[2020-05-25] MEDS: Insulin LISPRO 300 UNITS/3 ML VIAL SUBQ SCH ×4 (08:05→20:43)
[2020-05-25] MEDS: Thiamine (B-1) 100 MG TABLET PO SCH (08:05)
[2020-05-25] MEDS: Apixaban 5 MG TABLET PO SCH ×2 (08:05→20:43)
[2020-05-25] MEDS: QUEtiapine Fumarate 25 MG TABLET PO SCH (20:43)
[2020-05-25] MEDS: Insulin DETEMIR 100 UNIT/ML X5UNITS SUBQ SCH (20:43)
[2020-05-26] MEDS: Insulin LISPRO 300 UNITS/3 ML VIAL SUBQ SCH ×4 (08:43→21:20)
[2020-05-26] MEDS: Furosemide 40 MG TABLET PO SCH (08:44)
[2020-05-26] MEDS: Apixaban 5 MG TABLET PO SCH ×2 (08:44→20:18)
[2020-05-26] MEDS: Aspirin Enteric Coated 81 MG Tablet PO SCH (08:44)
[2020-05-26] MEDS: Thiamine (B-1) 100 MG TABLET PO SCH (08:44)
[2020-05-26] MEDS: QUEtiapine Fumarate 25 MG TABLET PO SCH (20:18)
[2020-05-26] MEDS: Insulin DETEMIR 100 UNIT/ML X5UNITS SUBQ SCH (21:21)
[2020-05-27] MEDS: Aspirin Enteric Coated 81 MG Tablet PO SCH (08:03)
[2020-05-27] MEDS: Insulin LISPRO 300 UNITS/3 ML VIAL SUBQ SCH ×4 (08:03→20:30)
[2020-05-27] MEDS: Apixaban 5 MG TABLET PO SCH ×2 (08:03→20:42)
[2020-05-27] MEDS: Furosemide 40 MG TABLET PO SCH (08:03)
[2020-05-27] MEDS: Thiamine (B-1) 100 MG TABLET PO SCH (08:03)
[2020-05-27] MEDS: Insulin DETEMIR 100 UNIT/ML X5UNITS SUBQ SCH (20:30)
[2020-05-27] MEDS: QUEtiapine Fumarate 25 MG TABLET PO SCH (20:42)
[2020-05-28] MEDS: Aspirin Enteric Coated 81 MG Tablet PO SCH (08:20)
[2020-05-28] MEDS: Apixaban 5 MG TABLET PO SCH ×2 (08:20→20:29)
[2020-05-28] MEDS: Thiamine (B-1) 100 MG TABLET PO SCH (08:20)
[2020-05-28] MEDS: Furosemide 40 MG TABLET PO SCH (08:20)
[2020-05-28] MEDS: Insulin LISPRO 300 UNITS/3 ML VIAL SUBQ SCH ×4 (08:24→20:28)
[2020-05-28] MEDS: QUEtiapine Fumarate 25 MG TABLET PO SCH (20:29)
[2020-05-28] MEDS: Insulin DETEMIR 100 UNIT/ML X5UNITS SUBQ SCH (20:29)
[2020-05-29 02:09] LABS: Basophils # 0.1 K/mcL (0.0-0.2); Eosinophils # 0.3 K/mcL (0.0-0.6); Hematocrit 41.3 % (37.5-50.1); Hemoglobin 13.4 g/dL (12.9-16.9); Immature Granulocytes % 0.6 % (0-4); Lymphocytes # 1.8 K/mcL (0.6-4.6); Mean Corpuscular HGB Conc 32.4 g/dL (31.6-35.5); Mean Corpuscular Hemoglobin 30.2 pg (28.0-33.3); Mean Corpuscular Volume 93.2 fL (83.0-100.0); Mean Platelet Volume 11.5 fL (9.4-12.4); Monocytes # 0.8 K/mcL (0.0-1.3); Monocytes % 9.1 %; Neutrophils # 5.4 K/mcL (1.6-8.9); Platelet Count 173 K/mcL (140-400); Red Blood Count 4.43 M/mcL (4.19-5.50); Red Cell Distribution Width 13.7 % (11.5-14.5); Segmented Neutrophils % 64.3 %; White Blood Count 8.4 K/mcL (4.3-11.1)
[2020-05-29 02:30] LABS: BUN/Creatinine Ratio 28 (6-26); Blood Urea Nitrogen 22 mg/dL (8-23); Carbon Dioxide 32 mEq/L (23-29); Chloride 98 mEq/L (98-107); Glucose 172 mg/dL (70-105); Osmolality,Calculated 289 (280-300); Potassium 3.8 mEq/L (3.5-5.1); Sodium 136 mEq/L (136-145); eGFR For African Americans > 60 (> 60); eGFR For Non-African Americans > 60 (> 60)
[2020-05-29] MEDS: Furosemide 40 MG TABLET PO SCH (08:28)
[2020-05-29] MEDS: Thiamine (B-1) 100 MG TABLET PO SCH (08:28)
[2020-05-29] MEDS: Apixaban 5 MG TABLET PO SCH ×2 (08:28→20:36)
[2020-05-29] MEDS: Aspirin Enteric Coated 81 MG Tablet PO SCH (08:28)
[2020-05-29] MEDS: Insulin LISPRO 300 UNITS/3 ML VIAL SUBQ SCH ×4 (08:29→20:40)
[2020-05-29] MEDS: QUEtiapine Fumarate 25 MG TABLET PO SCH (20:36)
[2020-05-29] MEDS: Insulin DETEMIR 100 UNIT/ML X5UNITS SUBQ SCH (20:39)
[2020-05-30] MEDS: Aspirin Enteric Coated 81 MG Tablet PO SCH (07:42)
[2020-05-30] MEDS: Apixaban 5 MG TABLET PO SCH ×2 (07:42→21:16)
[2020-05-30] MEDS: Insulin LISPRO 300 UNITS/3 ML VIAL SUBQ SCH ×4 (07:42→21:45)
[2020-05-30] MEDS: Furosemide 40 MG TABLET PO SCH (07:42)
[2020-05-30] MEDS: Thiamine (B-1) 100 MG TABLET PO SCH (07:42)
[2020-05-30] MEDS: QUEtiapine Fumarate 25 MG TABLET PO SCH (21:16)
[2020-05-30] MEDS: Insulin DETEMIR 100 UNIT/ML X5UNITS SUBQ SCH (21:45)
[2020-05-31] MEDS: Thiamine (B-1) 100 MG TABLET PO SCH (07:57)
[2020-05-31] MEDS: Insulin LISPRO 300 UNITS/3 ML VIAL SUBQ SCH ×4 (07:57→22:49)
[2020-05-31] MEDS: Apixaban 5 MG TABLET PO SCH ×2 (07:58→19:53)
[2020-05-31] MEDS: Aspirin Enteric Coated 81 MG Tablet PO SCH (07:58)
[2020-05-31] MEDS: Furosemide 40 MG TABLET PO SCH (07:58)
[2020-05-31] MEDS: QUEtiapine Fumarate 25 MG TABLET PO SCH (19:54)
[2020-06-01] MEDS: Insulin DETEMIR 100 UNIT/ML X5UNITS SUBQ SCH ×2 (01:00→22:14)
[2020-06-01] MEDS: Insulin LISPRO 300 UNITS/3 ML VIAL SUBQ SCH ×4 (11:47→22:14)
[2020-06-01] MEDS: Aspirin Enteric Coated 81 MG Tablet PO SCH (11:47)
[2020-06-01] MEDS: Thiamine (B-1) 100 MG TABLET PO SCH (11:47)
[2020-06-01] MEDS: Apixaban 5 MG TABLET PO SCH ×2 (11:47→22:15)
[2020-06-01] MEDS: Furosemide 40 MG TABLET PO SCH (11:48)
[2020-06-01] MEDS: QUEtiapine Fumarate 25 MG TABLET PO SCH (22:16)
[2020-06-02] MEDS: Insulin LISPRO 300 UNITS/3 ML VIAL SUBQ SCH ×4 (07:55→22:43)
[2020-06-02] MEDS: Thiamine (B-1) 100 MG TABLET PO SCH (09:35)
[2020-06-02] MEDS: Furosemide 40 MG TABLET PO SCH (09:35)
[2020-06-02] MEDS: Aspirin Enteric Coated 81 MG Tablet PO SCH (09:35)
[2020-06-02] MEDS: Apixaban 5 MG TABLET PO SCH ×2 (09:35→22:43)
[2020-06-02] MEDS: Insulin DETEMIR 100 UNIT/ML X5UNITS SUBQ SCH (22:43)
[2020-06-02] MEDS: QUEtiapine Fumarate 25 MG TABLET PO SCH (22:43)
[2020-06-03] MEDS: Insulin LISPRO 300 UNITS/3 ML VIAL SUBQ SCH ×4 (08:43→21:49)
[2020-06-03] MEDS: Apixaban 5 MG TABLET PO SCH ×2 (08:43→21:48)
[2020-06-03] MEDS: Furosemide 40 MG TABLET PO SCH (08:43)
[2020-06-03] MEDS: Aspirin Enteric Coated 81 MG Tablet PO SCH (08:43)
[2020-06-03] MEDS: Thiamine (B-1) 100 MG TABLET PO SCH (08:43)
[2020-06-03] MEDS: Insulin DETEMIR 100 UNIT/ML X5UNITS SUBQ SCH (21:48)
[2020-06-03] MEDS: QUEtiapine Fumarate 25 MG TABLET PO SCH (21:48)
[2020-06-04] MEDS: Insulin LISPRO 300 UNITS/3 ML VIAL SUBQ SCH ×4 (09:08→21:11)
[2020-06-04] MEDS: Thiamine (B-1) 100 MG TABLET PO SCH (09:18)
[2020-06-04] MEDS: Aspirin Enteric Coated 81 MG Tablet PO SCH (09:18)
[2020-06-04] MEDS: Furosemide 40 MG TABLET PO SCH (09:18)
[2020-06-04] MEDS: Apixaban 5 MG TABLET PO SCH ×2 (09:19→21:13)
[2020-06-04] MEDS: QUEtiapine Fumarate 25 MG TABLET PO SCH (21:13)
[2020-06-04] MEDS: Insulin DETEMIR 100 UNIT/ML X5UNITS SUBQ SCH (21:14)
[2020-06-05] MEDS: Aspirin Enteric Coated 81 MG Tablet PO SCH (09:15)
[2020-06-05] MEDS: Apixaban 5 MG TABLET PO SCH ×2 (09:15→21:09)
[2020-06-05] MEDS: Thiamine (B-1) 100 MG TABLET PO SCH (09:16)
[2020-06-05] MEDS: Furosemide 40 MG TABLET PO SCH (09:16)
[2020-06-05] MEDS: Insulin LISPRO 300 UNITS/3 ML VIAL SUBQ SCH ×4 (09:16→21:10)
[2020-06-05] MEDS: QUEtiapine Fumarate 25 MG TABLET PO SCH (21:09)
[2020-06-05] MEDS: Insulin DETEMIR 100 UNIT/ML X5UNITS SUBQ SCH (21:10)
[2020-06-06] MEDS: Apixaban 5 MG TABLET PO SCH ×2 (08:04→21:29)
[2020-06-06] MEDS: Aspirin Enteric Coated 81 MG Tablet PO SCH (08:04)
[2020-06-06] MEDS: Thiamine (B-1) 100 MG TABLET PO SCH (08:04)
[2020-06-06] MEDS: Furosemide 40 MG TABLET PO SCH (08:04)
[2020-06-06] MEDS: Insulin LISPRO 300 UNITS/3 ML VIAL SUBQ SCH ×4 (08:05→21:29)
[2020-06-06] MEDS: QUEtiapine Fumarate 25 MG TABLET PO SCH (21:30)
[2020-06-06] MEDS: Insulin DETEMIR 100 UNIT/ML X5UNITS SUBQ SCH (21:30)
[2020-06-07] MEDS: Acetaminophen 325 MG TABLET PO PRN (06:01)
[2020-06-07] MEDS: Apixaban 5 MG TABLET PO SCH ×2 (09:29→21:33)
[2020-06-07] MEDS: Thiamine (B-1) 100 MG TABLET PO SCH (09:29)
[2020-06-07] MEDS: Furosemide 40 MG TABLET PO SCH (09:29)
[2020-06-07] MEDS: Aspirin Enteric Coated 81 MG Tablet PO SCH (09:29)
[2020-06-07] MEDS: Insulin LISPRO 300 UNITS/3 ML VIAL SUBQ SCH ×4 (09:31→21:24)
[2020-06-07] MEDS: QUEtiapine Fumarate 25 MG TABLET PO SCH (21:32)
[2020-06-07] MEDS: Insulin DETEMIR 100 UNIT/ML X5UNITS SUBQ SCH (21:35)
[2020-06-08] MEDS: Furosemide 40 MG TABLET PO SCH (07:57)
[2020-06-08] MEDS: Thiamine (B-1) 100 MG TABLET PO SCH (07:57)
[2020-06-08] MEDS: Aspirin Enteric Coated 81 MG Tablet PO SCH (07:57)
[2020-06-08] MEDS: Insulin LISPRO 300 UNITS/3 ML VIAL SUBQ SCH ×4 (07:57→20:45)
[2020-06-08] MEDS: Apixaban 5 MG TABLET PO SCH ×2 (07:57→20:44)
[2020-06-08] MEDS: QUEtiapine Fumarate 25 MG TABLET PO SCH (20:44)
[2020-06-08] MEDS: Insulin DETEMIR 100 UNIT/ML X5UNITS SUBQ SCH (20:46)
[2020-06-09] MEDS: Insulin LISPRO 300 UNITS/3 ML VIAL SUBQ SCH ×4 (09:39→22:07)
[2020-06-09] MEDS: Thiamine (B-1) 100 MG TABLET PO SCH (09:47)
[2020-06-09] MEDS: Aspirin Enteric Coated 81 MG Tablet PO SCH (09:47)
[2020-06-09] MEDS: Furosemide 40 MG TABLET PO SCH (09:47)
[2020-06-09] MEDS: Apixaban 5 MG TABLET PO SCH ×2 (09:47→22:07)
[2020-06-09] MEDS: Insulin DETEMIR 100 UNIT/ML X5UNITS SUBQ SCH (22:07)
[2020-06-09] MEDS: QUEtiapine Fumarate 25 MG TABLET PO SCH (22:07)
[2020-06-10] MEDS: Insulin LISPRO 300 UNITS/3 ML VIAL SUBQ SCH ×4 (08:07→21:09)
[2020-06-10] MEDS: Apixaban 5 MG TABLET PO SCH ×2 (08:11→21:09)
[2020-06-10] MEDS: Furosemide 40 MG TABLET PO SCH (08:11)
[2020-06-10] MEDS: Thiamine (B-1) 100 MG TABLET PO SCH (08:11)
[2020-06-10] MEDS: Aspirin Enteric Coated 81 MG Tablet PO SCH (08:11)
[2020-06-10] MEDS: Acetaminophen 325 MG TABLET PO PRN (17:10)
[2020-06-10] MEDS: Insulin DETEMIR 100 UNIT/ML X5UNITS SUBQ SCH (21:09)
[2020-06-10] MEDS: QUEtiapine Fumarate 25 MG TABLET PO SCH (21:09)
[2020-06-11] MEDS: Aspirin Enteric Coated 81 MG Tablet PO SCH (08:25)
[2020-06-11] MEDS: Thiamine (B-1) 100 MG TABLET PO SCH (08:26)
[2020-06-11] MEDS: Apixaban 5 MG TABLET PO SCH ×2 (08:26→21:05)
[2020-06-11] MEDS: Furosemide 40 MG TABLET PO SCH (08:26)
[2020-06-11] MEDS: Insulin LISPRO 300 UNITS/3 ML VIAL SUBQ SCH ×5 (08:30→21:07)
[2020-06-11 12:38] LABS: BUN/Creatinine Ratio 19 (6-26); Blood Urea Nitrogen 14 mg/dL (8-23); Calcium 9.4 mg/dL (8.6-10.3); Carbon Dioxide 29 mEq/L (23-29); Chloride 100 mEq/L (98-107); Glucose 233 mg/dL (70-105); Osmolality,Calculated 292 (280-300); Potassium 3.9 mEq/L (3.5-5.1); Sodium 137 mEq/L (136-145); eGFR For African Americans > 60 (> 60); eGFR For Non-African Americans > 60 (> 60)
[2020-06-11] MEDS: QUEtiapine Fumarate 25 MG TABLET PO SCH (21:05)
[2020-06-11] MEDS: Insulin DETEMIR 100 UNIT/ML X5UNITS SUBQ SCH (21:06)
[2020-06-12] MEDS: Insulin LISPRO 300 UNITS/3 ML VIAL SUBQ SCH ×7 (09:25→20:46)
[2020-06-12] MEDS: Metoprolol XL (24 HR) Succ 50 MG TAB.ER.24H PO SCH (09:47)
[2020-06-12] MEDS: Thiamine (B-1) 100 MG TABLET PO SCH (09:47)
[2020-06-12] MEDS: Apixaban 5 MG TABLET PO SCH ×2 (09:48→20:55)
[2020-06-12] MEDS: Furosemide 40 MG TABLET PO SCH (09:48)
[2020-06-12] MEDS: QUEtiapine Fumarate 25 MG TABLET PO SCH (20:54)
[2020-06-12] MEDS: Insulin DETEMIR 100 UNIT/ML X5UNITS SUBQ SCH (20:55)
[2020-06-13] MEDS: Furosemide 40 MG TABLET PO SCH (08:48)
[2020-06-13] MEDS: Metoprolol XL (24 HR) Succ 50 MG TAB.ER.24H PO SCH (08:48)
[2020-06-13] MEDS: Apixaban 5 MG TABLET PO SCH ×2 (08:48→20:57)
[2020-06-13] MEDS: Thiamine (B-1) 100 MG TABLET PO SCH (08:48)
[2020-06-13] MEDS: Insulin LISPRO 300 UNITS/3 ML VIAL SUBQ SCH ×7 (08:49→20:58)
[2020-06-13] MEDS: Insulin DETEMIR 100 UNIT/ML X5UNITS SUBQ SCH (20:57)
[2020-06-13] MEDS: QUEtiapine Fumarate 25 MG TABLET PO SCH (20:57)
[2020-06-14] MEDS: Apixaban 5 MG TABLET PO SCH ×2 (08:04→21:02)
[2020-06-14] MEDS: Thiamine (B-1) 100 MG TABLET PO SCH (08:04)
[2020-06-14] MEDS: Furosemide 40 MG TABLET PO SCH (08:04)
[2020-06-14] MEDS: Insulin LISPRO 300 UNITS/3 ML VIAL SUBQ SCH ×7 (08:05→21:05)
[2020-06-14] MEDS: Metoprolol XL (24 HR) Succ 50 MG TAB.ER.24H PO SCH (08:05)
[2020-06-14] MEDS: Acetaminophen 325 MG TABLET PO PRN (12:18)
[2020-06-14] MEDS: QUEtiapine Fumarate 25 MG TABLET PO SCH (21:02)
[2020-06-14] MEDS: Insulin DETEMIR 100 UNIT/ML X5UNITS SUBQ SCH (21:05)
[2020-06-15] MEDS: Insulin LISPRO 300 UNITS/3 ML VIAL SUBQ SCH ×7 (09:57→20:35)
[2020-06-15] MEDS: Apixaban 5 MG TABLET PO SCH ×2 (10:06→20:34)
[2020-06-15] MEDS: Furosemide 40 MG TABLET PO SCH (10:06)
[2020-06-15] MEDS: Thiamine (B-1) 100 MG TABLET PO SCH (10:06)
[2020-06-15] MEDS: Metoprolol XL (24 HR) Succ 50 MG TAB.ER.24H PO SCH (10:07)
[2020-06-15] MEDS: QUEtiapine Fumarate 25 MG TABLET PO SCH (20:34)
[2020-06-15] MEDS: Insulin DETEMIR 100 UNIT/ML X5UNITS SUBQ SCH (20:34)
[2020-06-16] MEDS: Thiamine (B-1) 100 MG TABLET PO SCH (08:19)
[2020-06-16] MEDS: Apixaban 5 MG TABLET PO SCH ×2 (08:20→20:06)
[2020-06-16] MEDS: Furosemide 40 MG TABLET PO SCH (08:20)
[2020-06-16] MEDS: Metoprolol XL (24 HR) Succ 50 MG TAB.ER.24H PO SCH (08:20)
[2020-06-16] MEDS: Insulin LISPRO 300 UNITS/3 ML VIAL SUBQ SCH ×7 (08:21→22:54)
[2020-06-16] MEDS: QUEtiapine Fumarate 25 MG TABLET PO SCH (20:06)
[2020-06-16] MEDS: Insulin DETEMIR 100 UNIT/ML X5UNITS SUBQ SCH (20:08)
[2020-06-17] MEDS: Thiamine (B-1) 100 MG TABLET PO SCH (08:22)
[2020-06-17] MEDS: Metoprolol XL (24 HR) Succ 50 MG TAB.ER.24H PO SCH (08:22)
[2020-06-17] MEDS: Insulin LISPRO 300 UNITS/3 ML VIAL SUBQ SCH ×7 (08:23→20:48)
[2020-06-17] MEDS: Apixaban 5 MG TABLET PO SCH ×2 (08:23→20:47)
[2020-06-17] MEDS: Furosemide 40 MG TABLET PO SCH (08:23)
[2020-06-17] MEDS: Acetaminophen 325 MG TABLET PO PRN (12:05)
[2020-06-17] MEDS: QUEtiapine Fumarate 25 MG TABLET PO SCH (20:47)
[2020-06-17] MEDS: Insulin DETEMIR 100 UNIT/ML X5UNITS SUBQ SCH (21:11)
[2020-06-18] MEDS: Insulin LISPRO 300 UNITS/3 ML VIAL SUBQ SCH ×5 (09:05→17:34)
[2020-06-18] MEDS: Furosemide 40 MG TABLET PO SCH (09:06)
[2020-06-18] MEDS: Metoprolol XL (24 HR) Succ 50 MG TAB.ER.24H PO SCH (09:06)
[2020-06-18] MEDS: Thiamine (B-1) 100 MG TABLET PO SCH (09:06)
[2020-06-18] MEDS: Apixaban 5 MG TABLET PO SCH (09:06)
[2020-06-18] MEDS: Acetaminophen 325 MG TABLET PO PRN (13:06)
[2020-06-18] MEDS ORDERED: Insulin LISPRO 300 UNITS/3 ML VIAL SUBQ SCH (17:00)
[2020-06-18 18:31] LABS: Adenovirus Not Detected (Not Detect); Bordetella Pertussis Not Detected (Not Detect); Chlamydophila pneumoniae Not Detected (Not Detect); Coronavirus 229E Not Detected (Not Detect); Coronavirus HKU1 Not Detected (Not Detect); Coronavirus NL63 Not Detected (Not Detect); Coronavirus OC43 Not Detected (Not Detect); Human Metapneumovirus Not Detected (Not Detect); Human Rhinovirus/Enterovirus Not Detected (Not Detect); Influenza A Subtype 2009 H1 Not Detected (Not Detect); Influenza B Not Detected (Not Detect); Mycoplasma pneumoniae Not Detected (Not Detect); Parainfluenza Virus 1 Not Detected (Not Detect); Parainfluenza Virus 2 Not Detected (Not Detect); Parainfluenza Virus 3 Not Detected (Not Detect); Parainfluenza Virus 4 Not Detected (Not Detect); Respiratory Syncytial Virus Not Detected (Not Detect); SARS-CoV-2 Not Detected (Not Detect)
[2020-06-18 18:53] VITALS: BP 124/80
[2020-06-18] MEDS ORDERED: Insulin DETEMIR 100 UNIT/ML X5UNITS SUBQ SCH (21:00)
== END 2020-06-18 20:13 | disposition critical access hospital (66) | DRG 720 ==
LOC: EMEROOARM 13:01 → CDU 13:01 → SUATTDRO 15:24 → 2NNU 15:54 → SUATTDRO 05-13 13:05 → 3ANU 05-20 13:50
PROVIDERS: ADMIT Internal Medicine; ATTEND Internal Medicine

== ENCOUNTER 2020-07-18 14:34 | Inpatient (IN) ==
[2020-07-18 15:14] LABS: Basophils % 0.2 %; Eosinophils % 0.2 %; Hematocrit 37.9 % (37.5-50.1); Hemoglobin 11.9 g/dL (12.9-16.9); Immature Granulocytes % 0.4 % (0-4); Lymphocytes % 11.7 %; Mean Corpuscular HGB Conc 31.4 g/dL (31.6-35.5); Mean Corpuscular Hemoglobin 30.8 pg (28.0-33.3); Mean Corpuscular Volume 98.2 fL (83.0-100.0); Mean Platelet Volume 11.5 fL (9.4-12.4); Monocytes # 0.6 K/mcL (0.0-1.3); Monocytes % 7.3 %; Neutrophils # 6.9 K/mcL (1.6-8.9); Platelet Count 161 K/mcL (140-400); Red Blood Count 3.86 M/mcL (4.19-5.50); Red Cell Distribution Width 15.2 % (11.5-14.5); Segmented Neutrophils % 80.2 %; White Blood Count 8.5 K/mcL (4.3-11.1)
[2020-07-18 15:35] LABS: BUN/Creatinine Ratio 32 (6-26); Blood Urea Nitrogen 20 mg/dL (8-23); Carbon Dioxide 22 mEq/L (23-29); Chloride 101 mEq/L (98-107); Glucose 73 mg/dL (70-105); Osmolality,Calculated 293 (280-300); Potassium 4.4 mEq/L (3.5-5.1); Sodium 141 mEq/L (136-145); eGFR For African Americans > 60 (> 60); eGFR For Non-African Americans > 60 (> 60)
[2020-07-18 15:36] LABS: Troponin I < 0.03 ng/mL (< 0.04)
[2020-07-18] MEDS ORDERED: Mag Hydrox/Al Hydrox/Simeth 30 ML UDC PO PRN (17:33)
[2020-07-18] MEDS ORDERED: Naloxone 0.4 MG/ML INJ IVP PRN (17:33)
[2020-07-18] MEDS ORDERED: Ondansetron ODT 4 MG TAB.RAPDIS SL PRN (17:33)
[2020-07-18] MEDS ORDERED: MOM Conc 10 ML UD.LIQ PO PRN (17:33)
[2020-07-18] MEDS ORDERED: Dextrose Gel 15 GM/37.5 ML TUBE PO PRN ×2 (17:44)
[2020-07-18] MEDS ORDERED: *HR* Dextrose 50 % in Water (Vial) 50 ML VIAL IVP PRN (17:44)
[2020-07-18] MEDS ORDERED: D5% in Water 1,000 ML IVC PRN (17:44)
[2020-07-18] MEDS ORDERED: Gadolinium Contrast Agent (WT Based) IV PRN (17:51)
[2020-07-18] MEDS: Metoprolol XL (24 HR) Succ 50 MG TAB.ER.24H PO SCH (18:41)
[2020-07-18] MEDS ORDERED: Vancomycin 1,750 MG/517.5 ML IV.SOLN IVPB ONE (19:00)
[2020-07-18] MEDS: Insulin LISPRO 300 UNITS/3 ML VIAL SUBQ SCH (21:36)
[2020-07-18] MEDS: Apixaban 5 MG TABLET PO SCH (21:36)
[2020-07-18] MEDS: Insulin DETEMIR 100 UNIT/ML X5UNITS SUBQ SCH (21:36)
[2020-07-19 05:46] LABS: Hematocrit 33.9 % (37.5-50.1); Hemoglobin 10.8 g/dL (12.9-16.9); Mean Corpuscular HGB Conc 31.9 g/dL (31.6-35.5); Mean Corpuscular Hemoglobin 30.3 pg (28.0-33.3); Mean Platelet Volume 11.3 fL (9.4-12.4); Platelet Count 142 K/mcL (140-400); Red Blood Count 3.57 M/mcL (4.19-5.50); Red Cell Distribution Width 14.9 % (11.5-14.5); White Blood Count 7.5 K/mcL (4.3-11.1)
[2020-07-19 05:47] LABS: Alanine Aminotransferase 16 Units/L (7-52); Albumin 2.9 g/dL (3.5-5.7); Alkaline Phosphatase 76 Units/L (34-104); Aspartate Amino Transferase 30 Units/L (13-39); BUN/Creatinine Ratio 27 (6-26); Bilirubin,Total 0.6 mg/dL (0.3-1.0); Blood Urea Nitrogen 17 mg/dL (8-23); Calcium 8.5 mg/dL (8.6-10.3); Carbon Dioxide 32 mEq/L (23-29); Chloride 104 mEq/L (98-107); Glucose 81 mg/dL (70-105); Osmolality,Calculated 295 (280-300); Potassium 3.5 mEq/L (3.5-5.1); Sodium 142 mEq/L (136-145); Total Protein 5.9 g/dL (6.4-8.9); eGFR For African Americans > 60 (> 60); eGFR For Non-African Americans > 60 (> 60)
[2020-07-19] MEDS: Vancomycin 1,750 MG/517.5 ML IV.SOLN IVPB SCH (10:46)
[2020-07-19] MEDS: Insulin LISPRO 300 UNITS/3 ML VIAL SUBQ SCH ×4 (10:46→20:24)
[2020-07-19] MEDS: Aspirin Enteric Coated 81 MG Tablet PO SCH (10:47)
[2020-07-19] MEDS: Apixaban 5 MG TABLET PO SCH ×2 (10:47→20:24)
[2020-07-19] MEDS: Metoprolol XL (24 HR) Succ 50 MG TAB.ER.24H PO SCH (10:47)
[2020-07-19] MEDS: Furosemide 40 MG TABLET PO SCH (10:47)
[2020-07-19 11:41] LABS: Creatine Kinase 734 Units/L (30-223)
[2020-07-19] MEDS: Piperacillin/Tazobactam 3.375 GM in 0.9 % Sodium Chloride Mini Bag 100 ML IVPB SCH (17:15)
[2020-07-19] MEDS: Insulin DETEMIR 100 UNIT/ML X5UNITS SUBQ SCH (20:23)
[2020-07-20] MEDS: Piperacillin/Tazobactam 3.375 GM in 0.9 % Sodium Chloride Mini Bag 100 ML IVPB SCH ×2 (00:24→11:37)
[2020-07-20 03:32] LABS: Hematocrit 34.2 % (37.5-50.1); Hemoglobin 10.8 g/dL (12.9-16.9); Mean Corpuscular HGB Conc 31.6 g/dL (31.6-35.5); Mean Corpuscular Hemoglobin 30.6 pg (28.0-33.3); Mean Corpuscular Volume 96.9 fL (83.0-100.0); Mean Platelet Volume 11.3 fL (9.4-12.4); Platelet Count 139 K/mcL (140-400); Red Blood Count 3.53 M/mcL (4.19-5.50); Red Cell Distribution Width 15.1 % (11.5-14.5); White Blood Count 7.2 K/mcL (4.3-11.1)
[2020-07-20 03:53] LABS: BUN/Creatinine Ratio 24 (6-26); Blood Urea Nitrogen 16 mg/dL (8-23); Calcium 8.2 mg/dL (8.6-10.3); Carbon Dioxide 31 mEq/L (23-29); Chloride 105 mEq/L (98-107); Glucose 150 mg/dL (70-105); Osmolality,Calculated 298 (280-300); Potassium 3.4 mEq/L (3.5-5.1); Sodium 142 mEq/L (136-145); eGFR For African Americans > 60 (> 60); eGFR For Non-African Americans > 60 (> 60)
[2020-07-20] MEDS: Insulin LISPRO 300 UNITS/3 ML VIAL SUBQ SCH ×4 (11:36→21:51)
[2020-07-20] MEDS: Metoprolol XL (24 HR) Succ 50 MG TAB.ER.24H PO SCH (11:37)
[2020-07-20] MEDS: Aspirin Enteric Coated 81 MG Tablet PO SCH (11:37)
[2020-07-20] MEDS: Furosemide 40 MG TABLET PO SCH (11:37)
[2020-07-20] MEDS: Apixaban 5 MG TABLET PO SCH (11:37)
[2020-07-20] MEDS: Vancomycin 1,750 MG/517.5 ML IV.SOLN IVPB SCH (11:37)
[2020-07-20] MEDS: Insulin DETEMIR 100 UNIT/ML X5UNITS SUBQ SCH (21:54)
[2020-07-20] MEDS: QUEtiapine Fumarate 25 MG TABLET PO SCH (21:54)
[2020-07-20] MEDS ORDERED: Haloperidol Lactate 5 MG/ML VIAL IVP ONE (23:54)
[2020-07-21] MEDS ORDERED: Haloperidol Lactate 5 MG/ML VIAL IVP ONE ×2 (00:20→22:40)
[2020-07-21 03:26] LABS: Hemoglobin 10.6 g/dL (12.9-16.9); Monocytes % 8.1 %; Segmented Neutrophils % 61.5 %
[2020-07-21 03:28] LABS: Basophils # 0.1 K/mcL (0.0-0.2); Basophils % 0.8 %; Eosinophils # 0.2 K/mcL (0.0-0.6); Eosinophils % 2.5 %; Hematocrit 34.6 % (37.5-50.1); Immature Granulocytes % 0.5 % (0-4); Immature Platelets 1.9 % (1.1-6.1); Lymphocytes # 1.6 K/mcL (0.6-4.6); Lymphocytes % 26.6 %; Mean Corpuscular HGB Conc 30.6 g/dL (31.6-35.5); Mean Corpuscular Hemoglobin 30.5 pg (28.0-33.3); Mean Corpuscular Volume 99.4 fL (83.0-100.0); Monocytes # 0.5 K/mcL (0.0-1.3); Neutrophils # 3.7 K/mcL (1.6-8.9); Platelet Count 205 K/mcL (140-400); Red Blood Count 3.48 M/mcL (4.19-5.50)
[2020-07-21 03:43] LABS: BUN/Creatinine Ratio 24 (6-26); Blood Urea Nitrogen 18 mg/dL (8-23); Calcium 8.4 mg/dL (8.6-10.3); Carbon Dioxide 34 mEq/L (23-29); Chloride 105 mEq/L (98-107); Glucose 215 mg/dL (70-105); Magnesium 1.8 mg/dL (1.6-2.6); Osmolality,Calculated 304 (280-300); Phosphorous 2.9 mg/dL (2.7-4.5); Potassium 3.8 mEq/L (3.5-5.1); Sodium 143 mEq/L (136-145); eGFR For African Americans > 60 (> 60); eGFR For Non-African Americans > 60 (> 60)
[2020-07-21] MEDS: Furosemide 40 MG TABLET PO SCH (08:02)
[2020-07-21] MEDS: Metoprolol XL (24 HR) Succ 50 MG TAB.ER.24H PO SCH (08:02)
[2020-07-21] MEDS: Aspirin Enteric Coated 81 MG Tablet PO SCH (08:02)
[2020-07-21] MEDS: Insulin LISPRO 300 UNITS/3 ML VIAL SUBQ SCH ×4 (08:03→20:18)
[2020-07-21] MEDS: QUEtiapine Fumarate 25 MG TABLET PO SCH (20:14)
[2020-07-21] MEDS: Insulin DETEMIR 100 UNIT/ML X5UNITS SUBQ SCH (20:23)
[2020-07-22] MEDS: Melatonin 3 MG TABLET PO PRN (00:26)
[2020-07-22 05:34] LABS: Basophils % 0.7 %; Eosinophils # 0.2 K/mcL (0.0-0.6); Hematocrit 35.2 % (37.5-50.1); Hemoglobin 10.7 g/dL (12.9-16.9); Immature Granulocytes % 1.2 % (0-4); Lymphocytes # 1.2 K/mcL (0.6-4.6); Lymphocytes % 20.6 %; Mean Corpuscular HGB Conc 30.4 g/dL (31.6-35.5); Mean Corpuscular Hemoglobin 30.1 pg (28.0-33.3); Mean Corpuscular Volume 99.2 fL (83.0-100.0); Mean Platelet Volume 11.8 fL (9.4-12.4); Monocytes # 0.6 K/mcL (0.0-1.3); Monocytes % 9.6 %; Neutrophils # 3.9 K/mcL (1.6-8.9); Platelet Count 112 K/mcL (140-400); Red Blood Count 3.55 M/mcL (4.19-5.50); Red Cell Distribution Width 14.8 % (11.5-14.5); Segmented Neutrophils % 64.9 %
[2020-07-22 07:18] LABS: BUN/Creatinine Ratio 23 (6-26); Blood Urea Nitrogen 15 mg/dL (8-23); Calcium 8.2 mg/dL (8.6-10.3); Carbon Dioxide 31 mEq/L (23-29); Chloride 104 mEq/L (98-107); Glucose 232 mg/dL (70-105); Osmolality,Calculated 300 (280-300); Potassium 3.6 mEq/L (3.5-5.1); Sodium 141 mEq/L (136-145); eGFR For African Americans > 60 (> 60); eGFR For Non-African Americans > 60 (> 60)
[2020-07-22] MEDS: Furosemide 40 MG TABLET PO SCH (09:01)
[2020-07-22] MEDS: Insulin LISPRO 300 UNITS/3 ML VIAL SUBQ SCH ×4 (09:01→22:54)
[2020-07-22] MEDS: Metoprolol XL (24 HR) Succ 50 MG TAB.ER.24H PO SCH (09:01)
[2020-07-22] MEDS: Aspirin Enteric Coated 81 MG Tablet PO SCH (09:01)
[2020-07-22] MEDS ORDERED: Heparin 1,000 UNITS/500 mL 500 ML ONE ×2 (14:30→16:08)
[2020-07-22] MEDS ORDERED: *HR* Heparin 10,000 UNIT/10 ML VIAL ONE (14:30)
[2020-07-22] MEDS ORDERED: Isovue-300 200 mL Infus..BTL ONE (14:30)
[2020-07-22] MEDS ORDERED: 0.9 % Sodium Chloride 2,000 ML ONE (14:31)
[2020-07-22] MEDS ORDERED: *HR* FentaNYL (PF) 100 MCG/2 ML VIAL ONE (15:06)
[2020-07-22] MEDS ORDERED: *HR* Midazolam HCl 2 MG/2 ML VIAL ONE (15:07)
[2020-07-22] MEDS ORDERED: Ondansetron 4 MG/2 ML VIAL IVP PRN (16:50)
[2020-07-22] MEDS ORDERED: Acetaminophen 325 MG TABLET PO PRN (16:50)
[2020-07-22] MEDS ORDERED: *HR* HYDROcodone/Acet 5/325 mg TABLET PO PRN (16:50)
[2020-07-22] MEDS: QUEtiapine Fumarate 25 MG TABLET PO SCH (22:55)
[2020-07-22] MEDS: Insulin DETEMIR 100 UNIT/ML X5UNITS SUBQ SCH (22:55)
[2020-07-23 05:26] LABS: Immature Granulocytes % 0.9 % (0-4)
[2020-07-23 05:28] LABS: Basophils % 0.7 %; Eosinophils # 0.2 K/mcL (0.0-0.6); Eosinophils % 3.2 %; Hematocrit 32.6 % (37.5-50.1); Hemoglobin 9.9 g/dL (12.9-16.9); Immature Platelets 2.4 % (1.1-6.1); Lymphocytes # 1.1 K/mcL (0.6-4.6); Lymphocytes % 18.6 %; Mean Corpuscular HGB Conc 30.4 g/dL (31.6-35.5); Mean Corpuscular Hemoglobin 30.4 pg (28.0-33.3); Mean Platelet Volume 12.4 fL (9.4-12.4); Monocytes # 0.6 K/mcL (0.0-1.3); Monocytes % 10.4 %; Neutrophils # 3.8 K/mcL (1.6-8.9); Platelet Count 196 K/mcL (140-400); Red Blood Count 3.26 M/mcL (4.19-5.50); Red Cell Distribution Width 14.9 % (11.5-14.5); Segmented Neutrophils % 66.2 %; White Blood Count 5.7 K/mcL (4.3-11.1)
[2020-07-23 05:44] LABS: BUN/Creatinine Ratio 28 (6-26); Blood Urea Nitrogen 19 mg/dL (8-23); Calcium 8.2 mg/dL (8.6-10.3); Carbon Dioxide 37 mEq/L (23-29); Chloride 103 mEq/L (98-107); Glucose 207 mg/dL (70-105); Osmolality,Calculated 302 (280-300); Potassium 3.9 mEq/L (3.5-5.1); Sodium 142 mEq/L (136-145); eGFR For African Americans > 60 (> 60); eGFR For Non-African Americans > 60 (> 60)
[2020-07-23] MEDS: Insulin LISPRO 300 UNITS/3 ML VIAL SUBQ SCH ×4 (11:03→22:00)
[2020-07-23] MEDS: Aspirin Enteric Coated 81 MG Tablet PO SCH (11:04)
[2020-07-23] MEDS: Furosemide 40 MG TABLET PO SCH (11:04)
[2020-07-23] MEDS: Metoprolol XL (24 HR) Succ 50 MG TAB.ER.24H PO SCH (11:07)
[2020-07-23] MEDS ORDERED: *HR* Propofol 200 MG/20 ML VIAL IVP ONE (11:47)
[2020-07-23] MEDS ORDERED: *HR* FentaNYL (PF) 100 MCG/2 ML VIAL ONE (11:47)
[2020-07-23] MEDS ORDERED: Morphine Sulfate 2 MG/ML SYRINGE IVP PRN (11:51)
[2020-07-23] MEDS ORDERED: Ondansetron 4 MG/2 ML VIAL IVP PRN (11:51)
[2020-07-23] MEDS ORDERED: *HR* OxyCODONE Immed Rel 5 MG TABLET PO PRN (11:51)
[2020-07-23] MEDS ORDERED: Famotidine 20 MG/2 ML VIAL ONE (11:51)
[2020-07-23] MEDS ORDERED: Acetaminophen IV 1,000 MG/100 ML BAG IVPB ONE (11:51)
[2020-07-23] MEDS ORDERED: Lidocaine -MPF 2% 2 ML VIAL ONE (12:00)
[2020-07-23] MEDS ORDERED: *HR* PHENYLEPHRINE 1,000 MCG/10 ML SYRINGE IVP ONE (12:21)
[2020-07-23] MEDS ORDERED: EPHEDrine 50 MG/ML VIAL ONE (12:25)
[2020-07-23] MEDS ORDERED: CeFAZolin Syr 2,000MG/20 ML 2,000 MG/20 ML SYRINGE IVPB ONE (12:40)
[2020-07-23] MEDS ORDERED: Haloperidol Lactate 5 MG/ML VIAL IVP ONE (16:55)
[2020-07-23] MEDS: Apixaban 5 MG TABLET PO SCH (20:42)
[2020-07-23] MEDS: Insulin DETEMIR 100 UNIT/ML X5UNITS SUBQ SCH (20:42)
[2020-07-23] MEDS: QUEtiapine Fumarate 25 MG TABLET PO SCH (20:42)
[2020-07-24 03:27] LABS: Basophils % 0.7 %; Eosinophils # 0.1 K/mcL (0.0-0.6); Eosinophils % 2.2 %; Hematocrit 31.2 % (37.5-50.1); Hemoglobin 9.6 g/dL (12.9-16.9); Immature Granulocytes % 1.2 % (0-4); Immature Platelets 1.7 % (1.1-6.1); Lymphocytes # 1.3 K/mcL (0.6-4.6); Mean Corpuscular HGB Conc 30.8 g/dL (31.6-35.5); Mean Corpuscular Hemoglobin 30.6 pg (28.0-33.3); Mean Corpuscular Volume 99.4 fL (83.0-100.0); Mean Platelet Volume 12.2 fL (9.4-12.4); Monocytes # 0.6 K/mcL (0.0-1.3); Monocytes % 10.6 %; Neutrophils # 3.8 K/mcL (1.6-8.9); Platelet Count 218 K/mcL (140-400); Red Blood Count 3.14 M/mcL (4.19-5.50); Red Cell Distribution Width 15.1 % (11.5-14.5); Segmented Neutrophils % 64.3 %; White Blood Count 5.9 K/mcL (4.3-11.1)
[2020-07-24 03:50] LABS: BUN/Creatinine Ratio 26 (6-26); Blood Urea Nitrogen 17 mg/dL (8-23); Calcium 8.6 mg/dL (8.6-10.3); Carbon Dioxide 37 mEq/L (23-29); Chloride 101 mEq/L (98-107); Glucose 194 mg/dL (70-105); Osmolality,Calculated 301 (280-300); Potassium 3.8 mEq/L (3.5-5.1); Sodium 142 mEq/L (136-145); eGFR For African Americans > 60 (> 60); eGFR For Non-African Americans > 60 (> 60)
[2020-07-24] MEDS: Furosemide 40 MG TABLET PO SCH (08:45)
[2020-07-24] MEDS: Aspirin Enteric Coated 81 MG Tablet PO SCH (08:45)
[2020-07-24] MEDS: Insulin LISPRO 300 UNITS/3 ML VIAL SUBQ SCH ×4 (08:45→20:05)
[2020-07-24] MEDS: Apixaban 5 MG TABLET PO SCH ×2 (08:45→20:04)
[2020-07-24] MEDS: Metoprolol XL (24 HR) Succ 50 MG TAB.ER.24H PO SCH (08:45)
[2020-07-24] MEDS: Melatonin 3 MG TABLET PO PRN (20:04)
[2020-07-24] MEDS: Insulin DETEMIR 100 UNIT/ML X5UNITS SUBQ SCH (20:04)
[2020-07-24] MEDS: QUEtiapine Fumarate 25 MG TABLET PO SCH (20:04)
[2020-07-25 01:48] LABS: Basophils % 0.4 %; Eosinophils # 0.2 K/mcL (0.0-0.6); Eosinophils % 2.4 %; Hematocrit 31.1 % (37.5-50.1); Hemoglobin 9.5 g/dL (12.9-16.9); Lymphocytes # 1.7 K/mcL (0.6-4.6); Lymphocytes % 25.6 %; Mean Corpuscular HGB Conc 30.5 g/dL (31.6-35.5); Mean Corpuscular Hemoglobin 30.5 pg (28.0-33.3); Mean Platelet Volume 11.4 fL (9.4-12.4); Monocytes # 0.7 K/mcL (0.0-1.3); Monocytes % 10.3 %; Neutrophils # 4.1 K/mcL (1.6-8.9); Platelet Count 139 K/mcL (140-400); Red Blood Count 3.11 M/mcL (4.19-5.50); Red Cell Distribution Width 15.1 % (11.5-14.5); Segmented Neutrophils % 60.3 %; White Blood Count 6.7 K/mcL (4.3-11.1)
[2020-07-25 02:07] LABS: BUN/Creatinine Ratio 25 (6-26); Blood Urea Nitrogen 18 mg/dL (8-23); Calcium 8.4 mg/dL (8.6-10.3); Carbon Dioxide 38 mEq/L (23-29); Chloride 102 mEq/L (98-107); Glucose 71 mg/dL (70-105); Osmolality,Calculated 298 (280-300); Potassium 3.5 mEq/L (3.5-5.1); Sodium 144 mEq/L (136-145); eGFR For African Americans > 60 (> 60); eGFR For Non-African Americans > 60 (> 60)
[2020-07-25] MEDS: Insulin LISPRO 300 UNITS/3 ML VIAL SUBQ SCH ×4 (08:38→19:30)
[2020-07-25] MEDS: Metoprolol XL (24 HR) Succ 50 MG TAB.ER.24H PO SCH (08:49)
[2020-07-25] MEDS: Aspirin Enteric Coated 81 MG Tablet PO SCH (08:49)
[2020-07-25] MEDS: Apixaban 5 MG TABLET PO SCH ×2 (08:49→19:30)
[2020-07-25] MEDS: Furosemide 40 MG TABLET PO SCH (08:50)
[2020-07-25] MEDS: Piperacillin/Tazobactam 3.375 GM in 0.9 % Sodium Chloride Mini Bag 100 ML IVPB SCH ×3 (10:16→23:23)
[2020-07-25] MEDS: QUEtiapine Fumarate 25 MG TABLET PO SCH (19:30)
[2020-07-25] MEDS: Insulin DETEMIR 100 UNIT/ML X5UNITS SUBQ SCH (19:30)
[2020-07-25] MEDS ORDERED: hydrOXYzine pamoate 25 MG CAPSULE PO PRN (21:01)
[2020-07-26 06:17] LABS: Basophils % 0.6 %; Eosinophils # 0.2 K/mcL (0.0-0.6); Eosinophils % 3.2 %; Hematocrit 31.7 % (37.5-50.1); Hemoglobin 9.8 g/dL (12.9-16.9); Immature Granulocytes % 0.9 % (0-4); Immature Platelets 2.2 % (1.1-6.1); Lymphocytes # 1.6 K/mcL (0.6-4.6); Lymphocytes % 23.1 %; Mean Corpuscular HGB Conc 30.9 g/dL (31.6-35.5); Mean Corpuscular Hemoglobin 30.4 pg (28.0-33.3); Mean Corpuscular Volume 98.4 fL (83.0-100.0); Mean Platelet Volume 12.5 fL (9.4-12.4); Monocytes # 0.7 K/mcL (0.0-1.3); Monocytes % 10.3 %; Neutrophils # 4.2 K/mcL (1.6-8.9); Platelet Count 192 K/mcL (140-400); Red Blood Count 3.22 M/mcL (4.19-5.50); Red Cell Distribution Width 15.1 % (11.5-14.5); Segmented Neutrophils % 61.9 %; White Blood Count 6.8 K/mcL (4.3-11.1)
[2020-07-26 06:37] LABS: BUN/Creatinine Ratio 22 (6-26); Blood Urea Nitrogen 15 mg/dL (8-23); Calcium 8.5 mg/dL (8.6-10.3); Carbon Dioxide 37 mEq/L (23-29); Chloride 100 mEq/L (98-107); Glucose 180 mg/dL (70-105); Osmolality,Calculated 297 (280-300); Potassium 3.5 mEq/L (3.5-5.1); Sodium 141 mEq/L (136-145); eGFR For African Americans > 60 (> 60); eGFR For Non-African Americans > 60 (> 60)
[2020-07-26] MEDS: Piperacillin/Tazobactam 3.375 GM in 0.9 % Sodium Chloride Mini Bag 100 ML IVPB SCH (08:37)
[2020-07-26] MEDS: Furosemide 40 MG TABLET PO SCH (08:39)
[2020-07-26] MEDS: Metoprolol XL (24 HR) Succ 50 MG TAB.ER.24H PO SCH (08:39)
[2020-07-26] MEDS: Insulin LISPRO 300 UNITS/3 ML VIAL SUBQ SCH ×4 (08:39→19:31)
[2020-07-26] MEDS: Apixaban 5 MG TABLET PO SCH ×2 (08:39→19:30)
[2020-07-26] MEDS: Aspirin Enteric Coated 81 MG Tablet PO SCH (08:39)
[2020-07-26] MEDS: Vancomycin 1,750 MG/517.5 ML IV.SOLN IVPB SCH (12:23)
[2020-07-26] MEDS: metroNIDAZOLE 500 MG TABLET PO SCH ×2 (15:01→19:30)
[2020-07-26] MEDS: Cefepime HCl 2,000 MG in Water for inj. (sterile) 20 ML IVP SCH (16:56)
[2020-07-26] MEDS: Lactobacillus 1 EACH CAP.SPRINK PO SCH (19:30)
[2020-07-26] MEDS: Insulin DETEMIR 100 UNIT/ML X5UNITS SUBQ SCH (19:30)
[2020-07-26] MEDS: QUEtiapine Fumarate 25 MG TABLET PO SCH (19:30)
[2020-07-27 03:20] LABS: Mean Corpuscular Volume 102.3 fL (83.0-100.0)
[2020-07-27 03:22] LABS: Basophils # 0.1 K/mcL (0.0-0.2); Basophils % 0.8 %; Eosinophils # 0.2 K/mcL (0.0-0.6); Eosinophils % 2.7 %; Hematocrit 35.9 % (37.5-50.1); Hemoglobin 10.9 g/dL (12.9-16.9); Immature Granulocytes % 1.2 % (0-4); Immature Platelets 2.4 % (1.1-6.1); Lymphocytes # 1.9 K/mcL (0.6-4.6); Lymphocytes % 24.5 %; Mean Corpuscular HGB Conc 30.4 g/dL (31.6-35.5); Mean Corpuscular Hemoglobin 31.1 pg (28.0-33.3); Mean Platelet Volume 12.3 fL (9.4-12.4); Monocytes # 0.8 K/mcL (0.0-1.3); Monocytes % 10.4 %; Neutrophils # 4.7 K/mcL (1.6-8.9); Platelet Count 205 K/mcL (140-400); Red Blood Count 3.51 M/mcL (4.19-5.50); Red Cell Distribution Width 15.4 % (11.5-14.5); Segmented Neutrophils % 60.4 %; White Blood Count 7.7 K/mcL (4.3-11.1)
[2020-07-27 03:31] LABS: BUN/Creatinine Ratio 25 (6-26); Blood Urea Nitrogen 18 mg/dL (8-23); Calcium 8.7 mg/dL (8.6-10.3); Carbon Dioxide 38 mEq/L (23-29); Chloride 103 mEq/L (98-107); Glucose 144 mg/dL (70-105); Osmolality,Calculated 300 (280-300); Potassium 3.9 mEq/L (3.5-5.1); Sodium 143 mEq/L (136-145); eGFR For African Americans > 60 (> 60); eGFR For Non-African Americans > 60 (> 60)
[2020-07-27] MEDS: Cefepime HCl 2,000 MG in Water for inj. (sterile) 20 ML IVP SCH ×2 (05:43→16:28)
[2020-07-27] MEDS: Furosemide 40 MG TABLET PO SCH (09:19)
[2020-07-27] MEDS: metroNIDAZOLE 500 MG TABLET PO SCH ×3 (09:19→19:35)
[2020-07-27] MEDS: Aspirin Enteric Coated 81 MG Tablet PO SCH (09:19)
[2020-07-27] MEDS: Lactobacillus 1 EACH CAP.SPRINK PO SCH ×2 (09:19→19:35)
[2020-07-27] MEDS: Insulin LISPRO 300 UNITS/3 ML VIAL SUBQ SCH ×4 (09:19→19:36)
[2020-07-27] MEDS: Metoprolol XL (24 HR) Succ 50 MG TAB.ER.24H PO SCH (09:19)
[2020-07-27] MEDS: Apixaban 5 MG TABLET PO SCH ×2 (09:19→19:35)
[2020-07-27] MEDS: Vancomycin 1,750 MG/517.5 ML IV.SOLN IVPB SCH (11:46)
[2020-07-27] MEDS: Insulin DETEMIR 100 UNIT/ML X5UNITS SUBQ SCH (19:36)
[2020-07-27] MEDS: QUEtiapine Fumarate 25 MG TABLET PO SCH (19:36)
[2020-07-28 03:41] LABS: Basophils # 0.1 K/mcL (0.0-0.2); Basophils % 0.7 %; Eosinophils # 0.2 K/mcL (0.0-0.6); Eosinophils % 2.6 %; Hematocrit 29.4 % (37.5-50.1); Immature Granulocytes % 0.9 % (0-4); Immature Platelets 2.8 % (1.1-6.1); Lymphocytes # 1.8 K/mcL (0.6-4.6); Lymphocytes % 20.6 %; Mean Corpuscular HGB Conc 30.6 g/dL (31.6-35.5); Mean Corpuscular Hemoglobin 30.6 pg (28.0-33.3); Mean Platelet Volume 12.2 fL (9.4-12.4); Monocytes # 0.7 K/mcL (0.0-1.3); Monocytes % 8.4 %; Neutrophils # 5.9 K/mcL (1.6-8.9); Platelet Count 197 K/mcL (140-400); Red Blood Count 2.94 M/mcL (4.19-5.50); Red Cell Distribution Width 15.1 % (11.5-14.5); Segmented Neutrophils % 66.8 %; White Blood Count 8.8 K/mcL (4.3-11.1)
[2020-07-28 03:59] LABS: BUN/Creatinine Ratio 39 (6-26); Blood Urea Nitrogen 26 mg/dL (8-23); Calcium 8.4 mg/dL (8.6-10.3); Carbon Dioxide 38 mEq/L (23-29); Chloride 99 mEq/L (98-107); Glucose 166 mg/dL (70-105); Osmolality,Calculated 299 (280-300); Sodium 140 mEq/L (136-145); eGFR For African Americans > 60 (> 60); eGFR For Non-African Americans > 60 (> 60)
[2020-07-28] MEDS: Cefepime HCl 2,000 MG in Water for inj. (sterile) 20 ML IVP SCH ×2 (05:22→16:43)
[2020-07-28] MEDS: Furosemide 40 MG TABLET PO SCH (08:41)
[2020-07-28] MEDS: Lactobacillus 1 EACH CAP.SPRINK PO SCH ×2 (08:41→19:47)
[2020-07-28] MEDS: Aspirin Enteric Coated 81 MG Tablet PO SCH (08:41)
[2020-07-28] MEDS: metroNIDAZOLE 500 MG TABLET PO SCH ×3 (08:41→19:47)
[2020-07-28] MEDS: Apixaban 5 MG TABLET PO SCH ×2 (08:41→19:47)
[2020-07-28] MEDS: Metoprolol XL (24 HR) Succ 50 MG TAB.ER.24H PO SCH (08:41)
[2020-07-28] MEDS: Insulin LISPRO 300 UNITS/3 ML VIAL SUBQ SCH ×4 (08:44→19:48)
[2020-07-28] MEDS: Vancomycin 1,500 MG/265 ML IV.SOLN IVPB SCH (13:16)
[2020-07-28] MEDS: Insulin DETEMIR 100 UNIT/ML X5UNITS SUBQ SCH (19:47)
[2020-07-28] MEDS: QUEtiapine Fumarate 25 MG TABLET PO SCH (19:47)
[2020-07-29] MEDS: Cefepime HCl 2,000 MG in Water for inj. (sterile) 20 ML IVP SCH (05:01)
[2020-07-29] MEDS: Lactobacillus 1 EACH CAP.SPRINK PO SCH (08:26)
[2020-07-29] MEDS: Apixaban 5 MG TABLET PO SCH (08:26)
[2020-07-29] MEDS: Aspirin Enteric Coated 81 MG Tablet PO SCH (08:26)
[2020-07-29] MEDS: Metoprolol XL (24 HR) Succ 50 MG TAB.ER.24H PO SCH (08:26)
[2020-07-29] MEDS: metroNIDAZOLE 500 MG TABLET PO SCH (08:26)
[2020-07-29] MEDS: Furosemide 40 MG TABLET PO SCH (08:26)
[2020-07-29] MEDS: Insulin LISPRO 300 UNITS/3 ML VIAL SUBQ SCH ×2 (08:27→11:27)
[2020-07-29] MEDS: Vancomycin 1,500 MG/265 ML IV.SOLN IVPB SCH ×2 (11:27)
[2020-07-29 11:43] VITALS: BP 117/66
[2020-07-29] MEDS ORDERED: Lidocaine -MPF 1% 5 ML AMPUL INFILT ONE (12:28)
== END 2020-07-29 14:04 | DRG 253 ==
LOC: EMEROOARM 14:34 → 3ANU 14:34 → SUATTDRO 17:18 → 3ANU 17:43 → SUATTDRO 07-20 13:21 → 2ANU 07-22 19:52
PROVIDERS: ADMIT Internal Medicine; ATTEND Internal Medicine

== ENCOUNTER 2021-12-25 00:07 | Observation (INO) ==
[2021-12-25 02:07] LABS: Basophils % 0.5 %; Eosinophils # 0.3 K/mcL (0.0-0.6); Eosinophils % 3.7 %; Hematocrit 36.6 % (37.5-50.1); Hemoglobin 11.9 g/dL (12.9-16.9); Immature Granulocytes % 0.6 % (0-4); Immature Platelets 2.8 % (1.1-6.1); Lymphocytes # 2.2 K/mcL (0.6-4.6); Lymphocytes % 24.8 %; Mean Corpuscular HGB Conc 32.5 g/dL (31.6-35.5); Mean Corpuscular Hemoglobin 29.8 pg (28.0-33.3); Mean Corpuscular Volume 91.5 fL (83.0-100.0); Mean Platelet Volume 11.6 fL (9.4-12.4); Monocytes # 0.7 K/mcL (0.0-1.3); Monocytes % 7.5 %; Neutrophils # 5.5 K/mcL (1.6-8.9); Platelet Count 192 K/mcL (140-400); Segmented Neutrophils % 62.9 %; White Blood Count 8.7 K/mcL (4.3-11.1)
[2021-12-25 02:31] LABS: BUN/Creatinine Ratio 30 (6-26); Blood Urea Nitrogen 11 mg/dL (8-23); Calcium 9.1 mg/dL (8.6-10.3); Carbon Dioxide 31 mEq/L (23-29); Chloride 102 mEq/L (98-107); Glucose 133 mg/dL (70-105); Osmolality,Calculated 287 (280-300); Sodium 138 mEq/L (136-145)
[2021-12-25] MEDS ORDERED: Melatonin 3 MG TABLET PO PRN (04:07)
[2021-12-25] MEDS ORDERED: Naloxone 0.4 MG/ML INJ IVP PRN (04:07)
[2021-12-25] MEDS ORDERED: Ondansetron ODT 4 MG TAB.RAPDIS SL PRN (04:07)
[2021-12-25] MEDS ORDERED: D5% in Water 1,000 ML IVC PRN (06:39)
[2021-12-25] MEDS ORDERED: Dextrose Gel 15 GM/37.5 ML TUBE PO PRN ×2 (06:39)
[2021-12-25] MEDS ORDERED: *HR* Dextrose 50 % in Water (Syg) 50 ML SYRINGE IVP PRN (06:39)
[2021-12-25] MEDS ORDERED: Ringers Solution, Lactated 1,000 ML IVC SCH (06:45)
[2021-12-25 09:28] LABS: Bilirubin,Urine Negative (Negative); Blood,Urine Large (Negative); Clarity,Urine Ex.Turbid (Clear); Color,Urine Light-Orange (Yellow); Glucose,Urine (UA) Normal (Normal); Ketones,Urine Negative (Negative); Leukocyte Esterase,Urine Small (Negative); Nitrite,Urine Negative (Negative); Protein,Urine 200 mg/dL (Neg-Trace); Urobilinogen,Urine Normal (Normal)
[2021-12-25 09:47] LABS: Bacteria,Urine Moderate per hpf (None-Few); RBC,Urine TNTC per hpf (0-3)
[2021-12-25] MEDS: Insulin LISPRO 300 UNITS/3 ML VIAL SUBQ SCH ×2 (12:24→16:51)
[2021-12-25 14:04] LABS: VBG HCO3 29 mEq/L (21-27); VBG PCO2 54 mmHg (41-51); VBG PH 7.34 pH Units (7.32-7.42); VBG PO2 64 mmHg (25-50)
[2021-12-26] MEDS: Insulin LISPRO 300 UNITS/3 ML VIAL SUBQ SCH ×3 (01:24→14:07)
[2021-12-26 04:34] LABS: Basophils % 0.5 %; Eosinophils # 0.2 K/mcL (0.0-0.6); Eosinophils % 3.3 %; Hemoglobin 11.5 g/dL (12.9-16.9); Immature Granulocytes % 0.4 % (0-4); Lymphocytes # 2.1 K/mcL (0.6-4.6); Mean Corpuscular HGB Conc 31.9 g/dL (31.6-35.5); Mean Corpuscular Hemoglobin 29.3 pg (28.0-33.3); Mean Corpuscular Volume 91.8 fL (83.0-100.0); Mean Platelet Volume 12.3 fL (9.4-12.4); Monocytes # 0.6 K/mcL (0.0-1.3); Monocytes % 7.8 %; Neutrophils # 4.3 K/mcL (1.6-8.9); Platelet Count 114 K/mcL (140-400); Red Blood Count 3.92 M/mcL (4.19-5.50); Red Cell Distribution Width 15.9 % (11.5-14.5); White Blood Count 7.3 K/mcL (4.3-11.1)
[2021-12-26 04:39] LABS: INR 1.3; Prothrombin Time 14.8 Seconds (9.4-12.1)
[2021-12-26] MEDS ORDERED: allopurinoL 100 MG TABLET GTUBE SCH (09:00)
[2021-12-26] MEDS ORDERED: Famotidine 20 MG TABLET GTUBE SCH (09:00)
[2021-12-26] MEDS ORDERED: Aspirin 81 MG TAB.CHEW GTUBE SCH (09:00)
[2021-12-26] MEDS ORDERED: Folic Acid 1 MG TABLET GTUBE SCH (09:00)
[2021-12-26] MEDS ORDERED: Ammonium Lactate 30 APPL/225 GM BOTTLE TP SCH (09:15)
[2021-12-26 12:22] LABS: VBG HCO3 28 mEq/L (21-27); VBG PCO2 52 mmHg (41-51); VBG PH 7.34 pH Units (7.32-7.42); VBG PO2 79 mmHg (25-50)
[2021-12-26 16:01] LABS: Influenza A PCR Negative (Negative); Influenza B PCR Negative (Negative); Resp. Syncytial Virus PCR Negative (Negative)
[2021-12-26 16:24] LABS: SARS-CoV-2 by PCR (In House) Negative (Negative)
[2021-12-26 16:52] VITALS: BP 125/75; PULSE 81; TEMP 98.1; O2SAT 96
[2021-12-26] MEDS ORDERED: Insulin DETEMIR 100 UNIT/ML X5UNITS SUBQ SCH (21:00)
== END 2021-12-26 17:37 ==
LOC: 3BNU 00:07 → EMEROOARM 00:07 → SUATTDRO 04:17 → 3BNU 05:24
PROVIDERS: ADMIT Internal Medicine; ATTEND Internal Medicine